=== PATIENT | female | born 1990 | race Caucasian/White ===

== ENCOUNTER 2018-05-31 11:12 | Emergency (ER) | payer OTHER ==
[2018-05-31 11:33] VITALS: TEMP 98.1; BMI 33.0
--- NOTE | 2018-05-31 12:28 | PDOC ---
*Physical Exam - Vital Signs Last Vital Signs Temp Pulse Resp BP Pulse Ox 98.1 F 78 114/51 L 100 05/31/18 11:29 05/31/18 11:29 05/31/18 11:29 05/31/18 11:29 - Physical Exam Comments: 05/31/18 12:28 The patient was examined by JACOB Paz under my direct supervision. I personally evaluated the patient. I concur with the above findings and the plan of care. ED Treatment Course - LABORATORY CBC & Chemistry Diagram: 05/31/18 11:30 05/31/18 11:30 *DC/Admit/Observation/Transfer Diagnosis at time of Disposition: Hyperemesis - Discharge Dispostion Disposition: HOME Condition at time of disposition: Improved - Prescriptions Prescriptions: Metoclopramide HCl [Reglan] 10 mg PO Q8H #15 tablet - Referrals Referrals: Ronak Marques MD [Primary Care Provider] - - Patient Instructions Printed Discharge Instructions: Hyperemesis Gravidarum Additional Instructions: Take Reglan as needed for nausea and maintain adequate hydration. Please continue to follow-up with your OB - Post Discharge Activity
[2018-05-31] MEDS ORDERED: METOCLOPRAMIDE HCL INJECTION 10 MG/2 ML VIAL IVPUSH ONE (12:30)
[2018-05-31] MEDS ORDERED: SODIUM CHLORIDE 1,000 ML IV STA (12:30)
--- NOTE | 2018-05-31 12:30 | PDOC ---
History of Present Illness - General Chief Complaint: Nausea/Vomiting Stated Complaint: VOMITING Time Seen by Provider: 05/31/18 12:26 History Source: Patient - History of Present Illness Timing/Duration: reports: constant, getting worse Quality: reports: severe Abdominal Pain Onset Location: reports: epigastric Past History - Past Medical History Allergies/Adverse Reactions: Allergies Allergy/AdvReac Type Severity Reaction Status Date / Time No Known Allergies Allergy Verified 05/31/18 11:28 Home Medications: Ambulatory Orders Metoclopramide HCl [Reglan] 10 mg PO Q8H #15 tablet 05/31/18 Prenat 115/Iron Fum/Folic/Dss [ 19 Tablet] 1 each PO DAILY 05/31/18 Anemia: Yes COPD: No - Suicide/Smoking/Psychosocial Hx Smoking History: Former smoker Have you smoked in the past 12 months: No If you are a former smoker, when did you quit?: years ago Information on smoking cessation initiated: No Review of Systems - Review of Systems Constitutional: Yes: Weakness. No: Chills, Fever ABD/GI: Yes: Nausea, Vomiting. No: Diarrhea : No: Dysuria, Flank Pain *Physical Exam - Vital Signs Last Vital Signs Temp Pulse Resp BP Pulse Ox 98.1 F 78 114/51 L 100 05/31/18 11:29 05/31/18 11:29 05/31/18 11:29 05/31/18 11:29 - Physical Exam General Appearance: Yes: Appropriately Dressed, Moderate Distress HEENT: positive: Normal Voice Neck: positive: Supple Respiratory/Chest: negative: Respiratory Distress Gastrointestinal/Abdominal: positive: Normal Bowel Sounds, Tender (epigastrium, no ttp over RUQ), Soft. negative: Distended, Guarding, Rebound Musculoskeletal: negative: CVA Tenderness Integumentary: positive: Dry, Warm Neurologic: positive: Fully Oriented, Alert, Normal Mood/Affect Moderate Sedation - Procedure Monitoring Vital Signs: Procedure Monitoring Vital Signs Temperature 98.1 F 05/31/18 11:29 Pulse Rate 78 05/31/18 11:29 Respiratory Rate Blood Pressure 114/51 L 05/31/18 11:29 O2 Sat by Pulse Oximetry (%) 100 05/31/18 11:29 ED Treatment Course - LABORATORY CBC & Chemistry Diagram: 05/31/18 11:30 05/31/18 11:30 Medical Decision Making - Medical Decision Making 05/31/18 12:29 28 yo F, , ~ 6 weeks by dates, due for initial US next week, here w/ nausea, vomiting x 1 week, unable to keep anything down. Seen by her PHARMACY SALESPERSON and currently on B6 with no relief. Now complaining of epigastric discomfort. No lower abdominal pain, vaginal bleed, dysuria, fever or chills See exam Hyperemesis gravidarum -zofran -IVF -labs -OB US 05/31/18 15:55 Labs unremarkable. mildly elevated LFTs. Pt pain since improved with no ttp over RUQ. OB US read as + IUP @ 6 weeks with cardiac activity. Patient has since significantly improved with meds and able to tolerate po. Stable for discharge w/ rx for reglan and continued PHARMACY SALESPERSON f/u *DC/Admit/Observation/Transfer Diagnosis at time of Disposition: Hyperemesis - Discharge Dispostion Disposition: HOME Condition at time of disposition: Improved - Prescriptions Prescriptions: Metoclopramide HCl [Reglan] 10 mg PO Q8H #15 tablet - Referrals Referrals: Ronak Marques MD [Primary Care Provider] - - Patient Instructions Printed Discharge Instructions: Hyperemesis Gravidarum Additional Instructions: Take Reglan as needed for nausea and maintain adequate hydration. Please continue to follow-up with your OB - Post Discharge Activity
[2018-05-31] MEDS ORDERED: RANITIDINE HCL 150 MG TABLET (FP) PO ONE (12:31)
[2018-05-31] MEDS ORDERED: METOCLOPRAMIDE HCL INJECTION 10 MG/2 ML VIAL ONE (12:36)
[2018-05-31] MEDS ORDERED: RANITIDINE HCL 150 MG TABLET (FP) ONE (12:42)
[2018-05-31 12:48] LABS: BASO % 0.6 % (0-2.0); EOS % 0.4 % (0-4.5); HEMATOCRIT 38.5 % (32.4-45.2); HEMOGLOBIN 13.1 GM/dL (10.7-15.3); LYMPH % 16.8 % (8-40); MCHC 34.1 g/dl (32.0-36.0); MEAN CELL VOLUME 85.1 fl (80-96); MEAN PLT VOLUME 9.1 fl (7.5-11.1); MONO % 6.3 % (3.8-10.2); NEUT % 75.9 % (42.8-82.8); PLATELET COUNT 274 K/MM3 (134-434); RBC 4.52 M/mm3 (3.60-5.2); RDW 13.2 % (11.6-15.6); WHITE BLOOD COUNT 10.2 K/mm3 (4.0-10.0)
[2018-05-31 13:28] LABS: ALBUMIN 3.7 g/dl (3.4-5.0); ALK PHOS 80 U/L (45-117); ANION GAP 10 MMOL/L (8-16); BILIRUBIN,TOTAL 1.6 mg/dL (0.2-1); BLOOD UREA NITROGEN 10 mg/dL (7-18); CALCIUM 9.1 mg/dL (8.5-10.1); CHLORIDE 101 mmol/L (98-107); CO2 25 mmol/L (21-32); CREATININE 0.6 mg/dL (0.55-1.3); GLUCOSE,RANDOM 84 mg/dL (74-106); LIPASE 137 U/L (73-393); POTASSIUM 3.9 mmol/L (3.5-5.1); SGOT/AST 62 U/L (15-37); SGPT/ALT 113 U/L (13-61); SODIUM 136 mmol/L (136-145)
[2018-05-31 16:04] LABS: URINE APPEARANCE CLOUDY; URINE BILIRUBIN NEGATIVE (<2.0 mg/dL); URINE COLOR AMBER; URINE GLUCOSE (UA) NEGATIVE (NEGATIVE); URINE KETONE 2+ (NEGATIVE); URINE LEUK ESTERASE 1+ (NEGATIVE); URINE NITRITE NEGATIVE (NEGATIVE); URINE PROTEIN 1+ (NEGATIVE)
[2018-05-31 16:08] LABS: EPI CELLS MODERATE /HPF (FEW); URINE BACTERIA RARE /hpf (NONE SEEN); URINE MUCUS MANY; YEAST RARE
[2018-05-31] MEDS ORDERED: ACETAMINOPHEN 325 MG TABLET (FP) PO ONE (16:14)
[2018-05-31] MEDS ORDERED: ACETAMINOPHEN 325 MG TABLET (FP) ONE (16:16)
[2018-05-31 16:29] VITALS: BP 105/71; PULSE 69
== END 2018-05-31 16:37 | disposition home or self-care (01) ==
LOC: JER 11:12
PROC: 3E033GC Introduction of Other Therapeutic Substance into Peripheral Vein, Percutaneous Approach (ICD-10-PCS; principal; 2018-05-31)
PROC: 3E0337Z Introduction of Electrolytic and Water Balance Substance into Peripheral Vein, Percutaneous Approach (ICD-10-PCS; 2018-05-31)
DX: O26.891 Other specified pregnancy related conditions, first trimester (principal); Z3A.01 Less than 8 weeks gestation of pregnancy; O21.0 Mild hyperemesis gravidarum
CPT/HCPCS: 36415; 76817-TC; 80053; 81003; 81015; 83690; 85025; 87086; 96361; 96374; 99283-25; J7030

== ENCOUNTER 2018-06-02 17:04 | Emergency (ER) | payer OTHER ==
[2018-06-02] MEDS ORDERED: SODIUM CHLORIDE 1,000 ML IV STA ×2 (17:12→21:25)
[2018-06-02] MEDS ORDERED: FAMOTIDINE 20 MG/50 ML IVPB 20 MG in PREMIX 50 IVPB ONE (17:12)
[2018-06-02] MEDS ORDERED: ONDANSETRON 4 MG/2 ML VIAL IVPUSH ONE (17:12)
--- NOTE | 2018-06-02 17:12 | PDOC ---
Rapid Medical Evaluation Medical Evaluation: Allergies Allergy/AdvReac Type Severity Reaction Status Date / Time No Known Allergies Allergy Verified 05/31/18 11:28 06/02/18 17:11 I performed a brief in-person evaluation. Chief complaint: Approx 6 wks , vomiting, unable to keep down fluids Pertinent physical exam findings: Dry mucous membranes, in some distress secondary to epigastric pain and nausea. I have ordered the following: UA/culture, basic labs, fluids, Zofran, Pepcid Patient will proceed to the ED for further evaluation. Discharge Disposition - Diagnosis Hyperemesis - Referrals - Patient Instructions - Post Discharge Activity
[2018-06-02 17:18] VITALS: TEMP 98.5; BMI 33.0
[2018-06-02 17:31] LABS: BASO % 0.4 % (0-2.0); EOS % 0.3 % (0-4.5); HEMATOCRIT 38.3 % (32.4-45.2); LYMPH % 17.5 % (8-40); MCH 28.7 pg (25.7-33.7); MEAN CELL VOLUME 84.4 fl (80-96); MEAN PLT VOLUME 9.4 fl (7.5-11.1); MONO % 6.8 % (3.8-10.2); PLATELET COUNT 282 K/MM3 (134-434); RBC 4.54 M/mm3 (3.60-5.2); RDW 13.3 % (11.6-15.6)
[2018-06-02] MEDS ORDERED: ONDANSETRON 4 MG/2 ML VIAL ONE (17:40)
[2018-06-02] MEDS ORDERED: FAMOTIDINE 20 MG/50 ML IVPB 20 MG/50 ML MG IVPB ONE (17:40)
--- NOTE | 2018-06-02 17:55 | PDOC ---
History of Present Illness - General Chief Complaint: Nausea/Vomiting Stated Complaint: STOMACH PAIN Time Seen by Provider: 06/02/18 17:42 History Source: Patient Exam Limitations: No Limitations - History of Present Illness Travel History: No Initial Comments: 06/02/18 17:49 HPI: This 28-year-old female presents to the emergency room for evaluation of hyperemesis. She was seen here 2 days ago for the same similar complaint. She is approximately 6 weeks . This is a 6 para 4 with one current and a last menstrual period of 1228. She did see her [employer] STOCK CLERK who informed her to respond to the emergency room for hydration. She states that she's been vomiting every time she eats something it comes right back up. She has not been able to keep anything down. She also feels extremely dizzy. She does have some numbness and tingling to her hands as she is getting anxious about this nausea and vomiting and cannot keep anything down. Chief Compliant: Hyperemesis during PMH: Hyperemesis with other prior pregnancies FH: Pt has not recently traveled outside the country in the last 30 days. Pt has not been in contact with people who have traveled out of the country, in contact with people who have been ill with fever, n, v, d. SH: smoking use: NONE illicit drug use: NONE alcohol use: NONE employment/educational status: sexual history: PSH: Home med use noted on JUN Allergies: NKA Immunizations: PCP: Past History - Past Medical History Allergies/Adverse Reactions: Allergies Allergy/AdvReac Type Severity Reaction Status Date / Time No Known Allergies Allergy Verified 06/02/18 17:17 Home Medications: Ambulatory Orders Metoclopramide HCl [Reglan] 10 mg PO Q8H #15 tablet 05/31/18 Prenat 115/Iron Fum/Folic/Dss [ 19 Tablet] 1 each PO DAILY 05/31/18 Anemia: Yes COPD: No - Suicide/Smoking/Psychosocial Hx Smoking History: Never smoked Have you smoked in the past 12 months: No If you are a former smoker, when did you quit?: years ago Review of Systems - Review of Systems Able to Perform ROS?: Yes Comments:: 06/02/18 18:14 General statement: Age she's been having nausea and vomiting Hematology: neg history of bleeding/blood thinners Skin: Neg for lesions, rash, bruising. HEENT: Neg symptoms Respiratory: Neg SOB or difficulty in breathing Cardiac: Neg chest pain GI: Positive abdominal pain as well as nausea, vomiting exclusively with : Neg problems on voiding MS: Neg for joint pain/stiffness, no edema Neuro: Neg for LOC, weakness, Endocrine: Neg for excess thirst/hunger, cold/heat intolerance, excess sweating Allergies: Neg for allergies *Physical Exam - Vital Signs Last Vital Signs Temp Pulse Resp BP Pulse Ox 98.5 F 96 H 22 H 112/70 100 06/02/18 17:17 06/02/18 17:17 06/02/18 17:17 06/02/18 17:17 06/02/18 17:17 - Physical Exam Comments: 06/02/18 18:15 General Appearance: This ill [id number] female V/S: hemodynamically stable, afebrile Skin: WNL of pt's skin color, no signs of pallor, mottling, cyanosis Head:symmetrical Eyes: EOM's intact, PERRLA Ears: denies pain Nose: patent Throat: lips, teeth, gums, tongue, buccal mucos pink and moist Lungs: Chest symmetry equal. Cap refill <3 seconds. Lung sounds clear Cardiac: PMI at R 4MCL space, pos S1 and S2, regular rate. Abdomen: Soft, round, tender diffuse all over : Not observed Muscularskeletal: Gait steady, ambulated in to ER, no edema +PMS Neuro: AAOx3, cognitively intact, speech clear and appropriate. Moderate Sedation - Procedure Monitoring Vital Signs: Procedure Monitoring Vital Signs Temperature 98.5 F 06/02/18 17:17 Pulse Rate 96 H 06/02/18 17:17 Respiratory Rate 22 H 06/02/18 17:17 Blood Pressure 112/70 06/02/18 17:17 O2 Sat by Pulse Oximetry (%) 100 06/02/18 17:17 ED Treatment Course - LABORATORY CBC & Chemistry Diagram: 06/02/18 17:24 06/02/18 17:24 - ADDITIONAL ORDERS Additional order review: 06/02/18 17:24 RBC 4.54 MCV 84.4 MCHC 34.0 RDW 13.3 MPV 9.4 Neutrophils % 75.0 Lymphocytes % 17.5 Monocytes % 6.8 Eosinophils % 0.3 Basophils % 0.4 Medical Decision Making - Medical Decision Making 06/02/18 18:15 Patient initially was seen and examined. Patient states that she has been having some nausea and vomiting on and off over the last several weeks. She is . Approximately 6 weeks . States she has received the influenza vaccine several days ago at her GYNs office. If she has been having hyperemesis and had to have IV fluids 2 days ago here in the emergency room. Again she is started on IV fluids, Zofran IV, and Pepcid. She has not been able to tolerate anything by mouth. I am signing this patient out to my colleague: Susana HAYES In brief, this patient is being seen in the ED for a chief complaint of: hyperemesis I have completed the initial assessment interview note and have ordered:labs, ua , IVF, zofran, pepcid Pending results are: Plan for disposition is as follows: The patient is able to tolerate some fluids by mouth and is less dizzy or having any kind of hyperemesis continuing she may need to come in for observation this will depend on her presentation after treatment. *DC/Admit/Observation/Transfer Diagnosis at time of Disposition: Hyperemesis - Discharge Dispostion Disposition: HOME Decision to Admit order: No - Referrals Referrals: Ronak Marques MD [Primary Care Provider] - - Patient Instructions Printed Discharge Instructions: DI for Vomiting -- Adult Additional Instructions: Discharge instructions 1. Please follow up with your primary physician within the next few days and explain that you have been seen here in the Emergency Room. 2. If you experience any worsening of symptoms, please return to the ER 3. Rest, take small sips frequently. In sure that you are voiding during the course of the day to prevent any dehydration. You may try ice pops, teas, and water versus Gatorade 4. Drink plenty of water - Post Discharge Activity
[2018-06-02] MEDS ORDERED: SIMETHICONE 80 MG TAB.CHEW (FP) PO ONE (18:02)
--- NOTE | 2018-06-02 18:53 | PDOC ---
*Physical Exam - Vital Signs Last Vital Signs Temp Pulse Resp BP Pulse Ox 98.5 F 96 H 22 H 112/70 100 06/02/18 17:17 06/02/18 17:17 06/02/18 17:17 06/02/18 17:17 06/02/18 17:17 ED Treatment Course - LABORATORY CBC & Chemistry Diagram: 06/02/18 17:24 06/02/18 18:31 - ADDITIONAL ORDERS Additional order review: Laboratory Results 06/02/18 17:24 Sodium Cancelled Potassium Cancelled Chloride Cancelled Carbon Dioxide Cancelled Anion Gap Cancelled BUN Cancelled Creatinine Cancelled Creat Clearance w eGFR Cancelled Random Glucose Cancelled Calcium Cancelled Magnesium Cancelled Total Bilirubin Cancelled AST Cancelled ALT Cancelled Alkaline Phosphatase Cancelled Total Protein Cancelled Albumin Cancelled 06/02/18 17:24 RBC 4.54 MCV 84.4 MCHC 34.0 RDW 13.3 MPV 9.4 Neutrophils % 75.0 Lymphocytes % 17.5 Monocytes % 6.8 Eosinophils % 0.3 Basophils % 0.4 Medical Decision Making - Medical Decision Making 06/02/18 18:52 signout received from FREDDY Becker. pending labs BMP and u/a pt received 2L IVF, zofran and pepcid. if nausea or emesis will add reglan, additional IVF and IV tylenol. 06/02/18 19:45 LFT's mildly elevated, similar to previous ED visit but now with worsening ALT and rise in leucocytosis. will eval with liver sono to eval liver and gallbladder pt tolerating crackers at bedside. says she was treated for "bacteria" in her stomach with abx few months ago but infection was not fully treated on repeat examination, she was supposed to repeat the antibiotic regimen but she got and could not take all the antibiotics. 06/02/18 21:51 there was no sonographic evidence of hepatic or biliary tract pathology. 06/02/18 22:11 discussed results of labs and imaging with and pt. she feels better since she first came in but still has nausea. She requests to go home. recommended that she continue to try to eat and drink in small portions even if she continuos to vomit. and pt are in agreement to return home with recommendation to return to hospital if symptoms worsen or any new symptoms develop. *DC/Admit/Observation/Transfer Diagnosis at time of Disposition: Hyperemesis - Discharge Dispostion Disposition: HOME Condition at time of disposition: Stable Decision to Admit order: No - Referrals Referrals: Ronak Marques MD [Primary Care Provider] - - Patient Instructions Printed Discharge Instructions: DI for Vomiting -- Adult Additional Instructions: Discharge instructions 1. Please follow up with your primary physician within the next few days and explain that you have been seen here in the Emergency Room. 2. If you experience any worsening of symptoms, please return to the ER 3. Rest, take small sips frequently. In sure that you are voiding during the course of the day to prevent any dehydration. You may try ice pops, teas, and water versus Gatorade 4. Drink plenty of water - Post Discharge Activity
[2018-06-02 19:25] LABS: ALBUMIN 3.4 g/dl (3.4-5.0); ALK PHOS 90 U/L (45-117); ANION GAP 8 MMOL/L (8-16); BILIRUBIN,TOTAL 1.1 mg/dL (0.2-1); BLOOD UREA NITROGEN 8 mg/dL (7-18); CALCIUM 8.8 mg/dL (8.5-10.1); CHLORIDE 106 mmol/L (98-107); CO2 24 mmol/L (21-32); CREATININE 0.5 mg/dL (0.55-1.3); GLUCOSE,RANDOM 96 mg/dL (74-106); POTASSIUM 3.7 mmol/L (3.5-5.1); SGOT/AST 57 U/L (15-37); SGPT/ALT 173 U/L (13-61); SODIUM 137 mmol/L (136-145); TOT PROT 7.3 g/dl (6.4-8.2)
[2018-06-02 19:29] LABS: URINE APPEARANCE TURBID; URINE BILIRUBIN NEGATIVE (<2.0 mg/dL); URINE COLOR AMBER; URINE GLUCOSE (UA) NEGATIVE (NEGATIVE); URINE KETONE 2+ (NEGATIVE); URINE LEUK ESTERASE NEGATIVE (NEGATIVE); URINE NITRITE NEGATIVE (NEGATIVE); URINE PROTEIN 1+ (NEGATIVE)
[2018-06-02 19:37] LABS: EPI CELLS RARE /HPF (FEW); URINE HYALINE CAST 6 /lpf; URINE MUCUS MANY; YEAST MANY
[2018-06-02] MEDS ORDERED: DEXTROSE 5%-NORMAL SALINE 1,000 ML IV ONE (19:45)
[2018-06-02] MEDS ORDERED: METOCLOPRAMIDE HCL INJECTION 10 MG/2 ML VIAL IVPUSH ONE (20:46)
[2018-06-02] MEDS ORDERED: METOCLOPRAMIDE HCL INJECTION 10 MG/2 ML VIAL ONE (21:15)
[2018-06-02] MEDS ORDERED: ACETAMINOPHEN 1000 MG/100 ML VIAL (NON FORMULARY) IVPB ONE (21:26)
[2018-06-02] MEDS ORDERED: ACETAMINOPHEN INJECTION 100 ML IVPB ONE (21:57)
[2018-06-02 23:07] VITALS: BP 108/65; PULSE 89
== END 2018-06-02 23:07 | disposition home or self-care (01) ==
LOC: JER 17:04
PROC: 3E0337Z Introduction of Electrolytic and Water Balance Substance into Peripheral Vein, Percutaneous Approach (ICD-10-PCS; principal; 2018-06-02)
PROC: 3E033GC Introduction of Other Therapeutic Substance into Peripheral Vein, Percutaneous Approach (ICD-10-PCS; 2018-06-02)
PROC: 3E033GC Introduction of Other Therapeutic Substance into Peripheral Vein, Percutaneous Approach (ICD-10-PCS; 2018-06-02)
PROC: 3E033GC Introduction of Other Therapeutic Substance into Peripheral Vein, Percutaneous Approach (ICD-10-PCS; 2018-06-02)
PROC: 3E033NZ Introduction of Analgesics, Hypnotics, Sedatives into Peripheral Vein, Percutaneous Approach (ICD-10-PCS; 2018-06-02)
DX: O26.891 Other specified pregnancy related conditions, first trimester (principal); O21.0 Mild hyperemesis gravidarum; Z3A.01 Less than 8 weeks gestation of pregnancy
CPT/HCPCS: 36415; 76705-TC; 80053; 81003; 81015; 85025; 87086; 96361; 96365; 96375; 99283-25; J0131; J7030

== ENCOUNTER 2018-06-09 17:44 | Emergency (ER) | payer OTHER ==
[2018-06-09 17:51] VITALS: BP 116/80; PULSE 88; TEMP 97.4; BMI 32.0
--- NOTE | 2018-06-09 17:53 | PDOC ---
Rapid Medical Evaluation Time Seen by Provider: 06/09/18 17:47 Medical Evaluation: Allergies Allergy/AdvReac Type Severity Reaction Status Date / Time No Known Allergies Allergy Verified 06/02/18 17:17 06/09/18 17:48 I have performed a brief in-person evaluation of this patient. The patient presents with a chief complaint of: Hyperemesis w/ multiple visits for same over 1-2 weeks. Taking reglan and B6 w/ diet modification w/ no relief. Saw [facility]TEGR[facility] SPECIALIST yesterday but not given any new meds. Pt ~8 week , w/ + IUP w/ cardiac activity demonstrated on multiple US per pt, last time yesterday. No lower abd pain, vag bleed or dysuria Pertinent physical exam findings:harrison uncomfortable but stable I have ordered the following:labs The patient will proceed to the ED for further evaluation Discharge Disposition - Diagnosis Hyperemesis gravidarum - Referrals - Patient Instructions - Post Discharge Activity
[2018-06-09 18:24] LABS: BASO % 0.6 % (0-2.0); EOS % 0.6 % (0-4.5); HEMATOCRIT 36.2 % (32.4-45.2); HEMOGLOBIN 12.6 GM/dL (10.7-15.3); LYMPH % 16.1 % (8-40); MCH 29.5 pg (25.7-33.7); MCHC 34.7 g/dl (32.0-36.0); MEAN CELL VOLUME 84.9 fl (80-96); MEAN PLT VOLUME 9.4 fl (7.5-11.1); MONO % 8.7 % (3.8-10.2); PLATELET COUNT 266 K/MM3 (134-434); RBC 4.27 M/mm3 (3.60-5.2); RDW 13.1 % (11.6-15.6); WHITE BLOOD COUNT 10.9 K/mm3 (4.0-10.0)
[2018-06-09 19:02] LABS: ALBUMIN 3.6 g/dl (3.4-5.0); ALK PHOS 113 U/L (45-117); ANION GAP 7 MMOL/L (8-16); BILIRUBIN,TOTAL 1.1 mg/dL (0.2-1); BLOOD UREA NITROGEN 12 mg/dL (7-18); CALCIUM 9.1 mg/dL (8.5-10.1); CHLORIDE 100 mmol/L (98-107); CO2 26 mmol/L (21-32); CREATININE 0.6 mg/dL (0.55-1.3); GLUCOSE,RANDOM 88 mg/dL (74-106); SGOT/AST 110 U/L (15-37); SGPT/ALT 270 U/L (13-61); SODIUM 133 mmol/L (136-145); TOT PROT 7.8 g/dl (6.4-8.2)
[2018-06-09] MEDS ORDERED: SODIUM CHLORIDE 1,000 ML IV SCH (19:45)
--- NOTE | 2018-06-09 21:11 | PDOC ---
History of Present Illness - General Chief Complaint: Nausea/Vomiting Stated Complaint: VOMITING Time Seen by Provider: 06/09/18 17:47 - History of Present Illness Initial Comments: 06/09/18 21:05 28 year old woman with a history of anemia A2 LNMP 04/04 who presents with 5 weeks of nausea and nbnb vomiting up to 5-10x episodes per day. The patient also complains of dizziness and some epigastric abdominal pain that improved with eating. The patient denies fevers but has had some chills. The patient had the same type of nausea and vomiting when she had her first child approx 13 years ago. For her current symptoms she has tried Reglan, Pepcid and tums and B6 without relief. The patient denies chest pain, diarrhea, constipation, headaches. She has no other complaints at bedside. Past History - Past Medical History Allergies/Adverse Reactions: Allergies Allergy/AdvReac Type Severity Reaction Status Date / Time No Known Allergies Allergy Verified 06/09/18 22:36 Home Medications: Ambulatory Orders Metoclopramide HCl [Reglan] 10 mg PO Q8H #15 tablet 05/31/18 Prenat 115/Iron Fum/Folic/Dss [ 19 Tablet] 1 each PO DAILY 05/31/18 Anemia: Yes COPD: No - Immunization History Immunization Up to Date: Yes - Suicide/Smoking/Psychosocial Hx Smoking History: Unknown if ever smoked Have you smoked in the past 12 months: No If you are a former smoker, when did you quit?: years ago Hx Alcohol Use: No Drug/Substance Use Hx: No *Physical Exam - Vital Signs Last Vital Signs Temp Pulse Resp BP Pulse Ox 97.4 F L 88 20 116/80 99 06/09/18 17:49 06/09/18 17:49 06/09/18 17:49 06/09/18 17:49 06/09/18 17:49 - Physical Exam Comments: 06/09/18 21:48 unremarkable Moderate Sedation - Procedure Monitoring Vital Signs: Procedure Monitoring Vital Signs Temperature 97.4 F L 06/09/18 17:49 Pulse Rate 88 06/09/18 17:49 Respiratory Rate 20 06/09/18 17:49 Blood Pressure 116/80 06/09/18 17:49 O2 Sat by Pulse Oximetry (%) 99 06/09/18 17:49 ED Treatment Course - LABORATORY CBC & Chemistry Diagram: 06/09/18 18:05 06/09/18 18:05 - ADDITIONAL ORDERS Additional order review: Laboratory Results 06/09/18 06/09/18 06/09/18 19:29 18:05 18:05 WBC 10.9 H RBC 4.27 Hgb 12.6 Hct 36.2 MCV 84.9 MCH 29.5 MCHC 34.7 RDW 13.1 Plt Count 266 MPV 9.4 Absolute Neuts (auto) 8.1 H Neutrophils % 74.0 Lymphocytes % 16.1 Monocytes % 8.7 Eosinophils % 0.6 D Basophils % 0.6 Nucleated RBC % 0 Sodium Cancelled 133 L Potassium Cancelled 4.0 Chloride Cancelled 100 Carbon Dioxide Cancelled 26 Anion Gap Cancelled 7 L BUN Cancelled 12 Creatinine Cancelled 0.6 Creat Clearance w eGFR Cancelled > 60 Random Glucose Cancelled 88 Calcium Cancelled 9.1 Total Bilirubin Cancelled 1.1 H AST Cancelled 110 H ALT Cancelled 270 H Alkaline Phosphatase Cancelled 113 Total Protein Cancelled 7.8 Albumin Cancelled 3.6 Beta HCG, Quant [id number] 06/09/18 18:05 RBC 4.27 MCV 84.9 MCHC 34.7 RDW 13.1 MPV 9.4 Neutrophils % 74.0 Lymphocytes % 16.1 Monocytes % 8.7 Eosinophils % 0.6 D Basophils % 0.6 - RADIOLOGY Radiology Studies Ordered: Category Date Time Status <14WKS US [US] Stat Ultrasound 06/09/18 19:29 Completed Medical Decision Making - Medical Decision Making 06/09/18 21:47 28 year old woman with a history of anemia A2 LNMP 04/04 who presents with 5 weeks of nausea and nbnb vomiting up to 5-10x episodes per day. The patient also complains of dizziness and some epigastric abdominal pain that improved with eating. The patient denies fevers but has had some chills. The patient had the same type of nausea and vomiting when she had her first child approx 13 years ago. For her current symptoms she has tried Reglan, Pepcid and tums and B6 without relief. ED Course: consider molar vs iup vs ectopic cbc, cmp, ekg, ua, tvus LFT elevated Will order abd US to evaluate for cholestasis *DC/Admit/Observation/Transfer Diagnosis at time of Disposition: Abnormal LFTs, Dizziness, Hyperemesis - Discharge Dispostion Disposition: HOME Condition at time of disposition: Stable Decision to Admit order: No - Referrals Referrals: Ronak Marques MD [Primary Care Provider] - - Patient Instructions Printed Discharge Instructions: DI for Vomiting -- Adult Additional Instructions: You were seen in the ED for complaints of vomiting in . In the ED you were evaluated with labwork and imaging. Your results showed an intrauterine of 7 weeks and 4 days w/ heart rate of 156bpm. There does not appear to be an acute need for immediate hospitalization. You are advised to follow up with your Primary Care Physician within 1 week. Please let them know about your rising LFT lab levels. You were given a prescription for Diclegis, anti-nausea medication. Please take as directed. Return to the ED immediately if you experience worsening vomiting, diarrhea, fever, vaginal bleeding or discharge, abdominal pain, chest pain or shortness of breath. - Post Discharge Activity
[2018-06-09] MEDS ORDERED: METOCLOPRAMIDE HCL INJECTION 10 MG/2 ML VIAL IVPUSH ONE (21:12)
[2018-06-09] MEDS ORDERED: FAMOTIDINE 20 MG/50 ML IVPB 20 MG/50 ML MG IVPB ONE ×2 (21:12→21:18)
[2018-06-09] MEDS ORDERED: METOCLOPRAMIDE HCL INJECTION 10 MG/2 ML VIAL ONE (21:18)
[2018-06-09] MEDS ORDERED: MAG HYDROX/AL HYDROX/SIMETH -MYLANTA- ORAL SUSPENSION PO ONE (21:30)
[2018-06-09] MEDS ORDERED: MAG HYDROX/AL HYDROX/SIMETH 30 ML UNIT-DOSE CUP ONE (21:37)
--- NOTE | 2018-06-09 21:49 | PDOC ---
Attending Attestation - Resident Resident Name: Ann Junior - ED Attending Attestation I have performed the following: I have examined & evaluated the patient, The case was reviewed & discussed with the resident, I agree w/resident's findings & plan - HPI HPI: 06/09/18 21:48 Ms. Garrett is a 8 weeks 28 year old female , with a past medical history significant for anemia, presents to the emergency department with 5 weeks of nausea and vomiting (non bloody, non bilious). The patient also endorses one week of worsening epigastric abdominal pain, alleviated with eating and worsened without eating. The patient states her LMP was 04/14/18. Also noted today had up to 12X NBNB emesis, associated with dizziness and passing out. No AP, VB, cp, sob, urinary sx, redding, neuro changes, urinary sx. Has been taking tums and pepcid ac without relief. 06/09/18 21:48 - Physicial Exam PE: 06/09/18 21:48 NAD, well appearing, oriented appropriately, alert, PERRL, EOMI, MMM, nl conjunctiva, anicteric; neck supple. lungs clear, RRR, abdomen soft nontender. LEWIS x4, no focal neuro deficits. No peripheral edema. normal color for ethnicity , WWP. - Medical Decision Making 06/09/18 21:46 See HPI for details Vital signs reviewed, wnl. Prior notes reviewed, including admissions, discharges and consultations. laboratory results and imaging reviewed, basic labs and lytes wnl, notable for uptrending transaminitis, higher than last check from last week.. abdomen US_ OB US with 7 wks gestation, live IUP no AP or VB. given pepcid, GI cocktail, IVF, reglan and reassessed. 06/09/18 21:49
[2018-06-09 23:32] LABS: URINE APPEARANCE SLCLOUDY; URINE BILIRUBIN NEGATIVE (<2.0 mg/dL); URINE COLOR YELLOW; URINE GLUCOSE (UA) NEGATIVE (NEGATIVE); URINE KETONE 1+ (NEGATIVE); URINE LEUK ESTERASE TRACE (NEGATIVE); URINE NITRITE NEGATIVE (NEGATIVE); URINE PROTEIN NEGATIVE (NEGATIVE); URINE UROBILINOGEN NEGATIVE mg/dL (0.2-1.0)
[2018-06-09 23:36] LABS: EPI CELLS MANY /HPF (FEW); URINE BACTERIA RARE /hpf (NONE SEEN); URINE HYALINE CAST 1 /lpf; URINE MUCUS MODERATE
--- NOTE | 2018-06-10 00:47 | PDOC ---
*Physical Exam - Vital Signs Last Vital Signs Temp Pulse Resp BP Pulse Ox 97.4 F L 88 20 116/80 99 06/09/18 17:49 06/09/18 17:49 06/09/18 17:49 06/09/18 17:49 06/09/18 17:49 ED Treatment Course - LABORATORY CBC & Chemistry Diagram: 06/09/18 18:05 06/09/18 18:05 - ADDITIONAL ORDERS Additional order review: Laboratory Results 06/09/18 06/09/18 06/09/18 23:19 19:29 18:05 Sodium Cancelled 133 L Potassium Cancelled 4.0 Chloride Cancelled 100 Carbon Dioxide Cancelled 26 Anion Gap Cancelled 7 L BUN Cancelled 12 Creatinine Cancelled 0.6 Creat Clearance w eGFR Cancelled > 60 Random Glucose Cancelled 88 Calcium Cancelled 9.1 Total Bilirubin Cancelled 1.1 H AST Cancelled 110 H ALT Cancelled 270 H Alkaline Phosphatase Cancelled 113 Total Protein Cancelled 7.8 Albumin Cancelled 3.6 Beta HCG, Quant 638717.2 Urine Color Yellow Urine Appearance Slcloudy Urine pH 5.0 D Ur Specific [place] 1.023 Urine Protein Negative Urine Glucose (UA) Negative Urine Ketones 1+ H Urine Blood 2+ H Urine Nitrite Negative Urine Bilirubin Negative Urine Urobilinogen Negative Ur Leukocyte Esterase Trace Urine WBC (Auto) 3 Urine RBC (Auto) 29 Ur Epithelial Cells Many Urine Bacteria Rare Hyaline Casts 1 Urine Mucus Moderate 06/09/18 18:05 RBC 4.27 MCV 84.9 MCHC 34.7 RDW 13.1 MPV 9.4 Neutrophils % 74.0 Lymphocytes % 16.1 Monocytes % 8.7 Eosinophils % 0.6 D Basophils % 0.6 - Medications Given in the ED: ED Medications Discontinued Medications Generic Name Dose Route Start Last Admin Trade Name Freq PRN Reason Stop Dose Admin Al Hydroxide/Mg Hydroxide 30 ml 06/09/18 21:30 06/09/18 21:40 Mylanta Suspension - PO 06/09/18 21:31 30 mg ONCE ONE Administration Famotidine/Sodium Chloride 20 mg in 50 mls @ 100 mls/hr 06/09/18 21:12 21:24 Pepcid 20 Mg Premixed Ivpb - IVPB 06/09/18 21:41 100 mls/hr ONCE ONE Administration Metoclopramide HCl 10 mg 06/09/18 21:12 06/09/18 21:24 Reglan Injection - IVPUSH 06/09/18 21:13 10 mg ONCE ONE Administration Medical Decision Making - Medical Decision Making 06/10/18 00:45 US did not show choleliths but did show sludge. Liver unremarkable. Will DC patient with return precautions and follow up instructions. *DC/Admit/Observation/Transfer Diagnosis at time of Disposition: Abnormal LFTs, Dizziness, Hyperemesis - Discharge Dispostion Disposition: HOME Condition at time of disposition: Stable - Prescriptions Prescriptions: Doxylamine Succinate/Vit B6 [Diclegis Dr 10-10 mg Tablet] 1 each PO TID PRN 30 Days #21 tablet.dr PRN Reason: Nausea And/Or Vomiting Metoclopramide HCl [Reglan] 5 mg PO TID PRN 7 Days #21 tablet PRN Reason: Nausea And/Or Vomiting - Referrals Referrals: Ronak Marques MD [Primary Care Provider] - - Patient Instructions Printed Discharge Instructions: DI for Vomiting -- Adult Additional Instructions: You were seen in the ED for complaints of vomiting in . In the ED you were evaluated with labwork and imaging. Your results showed an intrauterine of 7 weeks and 4 days w/ heart rate of 156bpm. There does not appear to be an acute need for immediate hospitalization. Your ultrasound did not show gallstones or liver problems. You are advised to follow up with your Primary Care Physician within 1 week. Please let them know about your rising LFT lab levels. You were given a prescription for Diclegis, anti-nausea medication. Please take as directed. Return to the ED immediately if you experience worsening vomiting, diarrhea, fever, vaginal bleeding or discharge, abdominal pain, chest pain or shortness of breath. - Post Discharge Activity
--- NOTE | 2018-06-10 22:04 | EKG ---
Test Reason : Blood Pressure : / mmHG Vent. Rate : 068 BPM Atrial Rate : 068 BPM P-R Int : 158 ms QRS Dur : 082 ms QT Int : 416 ms P-R-T Axes : 051 074 058 degrees QTc Int : 442 ms NORMAL SINUS RHYTHM NORMAL ECG NO PREVIOUS ECGS AVAILABLE Confirmed by MARK PORTILLO MD ([id number]) on 06/10/2018 10:03:40 PM Referred By: Confirmed By:MARK PORTILLO MD
== END 2018-06-10 00:58 | disposition home or self-care (01) ==
LOC: JER 17:44
PROC: 3E033GC Introduction of Other Therapeutic Substance into Peripheral Vein, Percutaneous Approach (ICD-10-PCS; principal; 2018-06-09)
PROC: 3E033GC Introduction of Other Therapeutic Substance into Peripheral Vein, Percutaneous Approach (ICD-10-PCS; 2018-06-09)
DX: O26.891 Other specified pregnancy related conditions, first trimester (principal); O21.0 Mild hyperemesis gravidarum; Z3A.01 Less than 8 weeks gestation of pregnancy; O99.011 Anemia complicating pregnancy, first trimester
CPT/HCPCS: 36415; 76705-TC; 76801-TC; 80053; 81003; 81015; 84702; 85025; 93005; 93010; 96365; 96375; 99282-25; J7030

== ENCOUNTER 2018-06-26 15:28 | Observation (INO) | payer OTHER ==
--- NOTE | 2018-06-26 15:54 | PDOC ---
History of Present Illness - History of Present Illness Initial Comments: 06/26/18 16:06 Ms. 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 Patient reports she has had hyperemesis gravidarum in the past however it has never been this bad in the past. Patient has been in close contact with her PREMIX OPERATOR CONCENTRATE regarding this. Reports she took pepcid and reglan today to no effect. Has also been taking vitamin B6 however this has also not been helpful. The patient denies chest pain, shortness of breath, and headache. Denies fever, chills, diarrhea and constipation. Denies dysuria, frequency, urgency and hematuria. <Jarocho Silva - Last Filed: 06/26/18 18:45> <Nat Doan - Last Filed: 06/26/18 19:07> - General Chief Complaint: Syncope/Near Syncope Stated Complaint: BACK PAIN Time Seen by Provider: 06/26/18 15:54 Past History - Past Medical History Anemia: Yes COPD: No - Immunization History Immunization Up to Date: Yes - Suicide/Smoking/Psychosocial Hx Smoking History: Never smoked Have you smoked in the past 12 months: No If you are a former smoker, when did you quit?: years ago Hx Alcohol Use: No Drug/Substance Use Hx: No <Jarocho Silva - Last Filed: 06/26/18 18:45> <Nat Doan - Last Filed: 06/26/18 19:07> - Past Medical History Allergies/Adverse Reactions: Allergies Allergy/AdvReac Type Severity Reaction Status Date / Time No Known Allergies Allergy Verified 06/26/18 15:40 Home Medications: Ambulatory Orders Metoclopramide HCl [Reglan] 10 mg PO Q8H #15 tablet 05/31/18 Prenat 115/Iron Fum/Folic/Dss [ 19 Tablet] 1 each PO DAILY 05/31/18 Doxylamine Succinate/Vit B6 [Zari Antonio 10-10 mg Tablet] 1 each PO TID PRN 30 Days #21 tablet. 06/10/18 Metoclopramide HCl [Reglan] 5 mg PO TID PRN 7 Days #21 tablet 06/10/18 Review of Systems - Review of Systems Comments:: 06/26/18 16:18 GENERAL/CONSTITUTIONAL: No fever or chills. No weakness. HEAD, EYES, EARS, NOSE AND THROAT: No change in vision. No ear pain or discharge. No sore throat. CARDIOVASCULAR: No chest pain or shortness of breath RESPIRATORY: No cough, wheezing, or hemoptysis. GASTROINTESTINAL: +RUQ pain x 2 days with additional N/V as described. No diarrhea or constipation. GENITOURINARY: No dysuria, frequency, or change in urination. MUSCULOSKELETAL: No joint or muscle swelling or pain. No neck or back pain. SKIN: No rash NEUROLOGIC: No headache, vertigo, loss of consciousness, or change in strength/ sensation. ENDOCRINE: No increased thirst. No abnormal weight change HEMATOLOGIC/LYMPHATIC: No anemia, easy bleeding, or history of blood clots. ALLERGIC/IMMUNOLOGIC: No hives or skin allergy. <Jarocho Silva - Last Filed: 06/26/18 18:45> *Physical Exam - Vital Signs Last Vital Signs Temp Pulse Resp BP Pulse Ox 97.9 F 99 H 16 105/81 99 06/26/18 15:40 06/26/18 15:40 06/26/18 15:40 06/26/18 15:40 06/26/18 15:40 - Physical Exam Comments: 06/26/18 16:18 GENERAL: Awake, alert, and fully oriented, in no acute distress HEAD: No signs of trauma, normocephalic, atraumatic EYES: PERRLA, EOMI, sclera anicteric, conjunctiva clear ENT: Auricles normal inspection, hearing grossly normal, nares patent, oropharynx clear without exudates. Moist mucosa NECK: Normal ROM, supple, no lymphadenopathy, JVD, or masses LUNGS: No distress, speaks full sentences, clear to auscultation bilaterally HEART: Regular rate and rhythm, normal S1 and S2, no murmurs, rubs or gallops, peripheral pulses normal and equal bilaterally. ABDOMEN: +RUQ TTP. Soft, nontender, normoactive bowel sounds. No guarding, no rebound. No masses EXTREMITIES: Normal inspection, Normal range of motion, no edema. No clubbing or cyanosis. NEUROLOGICAL: Cranial nerves II through XII grossly intact. Normal speech, normal gait, no focal sensorimotor deficits SKIN: Warm, Dry, normal turgor, no rashes or lesions noted. <Jarocho Silva - Last Filed: 06/26/18 18:45> - Vital Signs Last Vital Signs Temp Pulse Resp BP Pulse Ox 97.9 F 99 H 16 105/81 99 06/26/18 15:40 06/26/18 15:40 06/26/18 15:40 06/26/18 15:40 06/26/18 15:40 <Nat Doan - Last Filed: 06/26/18 19:07> Moderate Sedation - Procedure Monitoring Vital Signs: Procedure Monitoring Vital Signs Temperature 97.9 F 06/26/18 15:40 Pulse Rate 99 H 06/26/18 15:40 Respiratory Rate 16 06/26/18 15:40 Blood Pressure 105/81 06/26/18 15:40 O2 Sat by Pulse Oximetry (%) 99 06/26/18 15:40 <Jarocho Silva - Last Filed: 06/26/18 18:45> - Procedure Monitoring Vital Signs: Procedure Monitoring Vital Signs Temperature 97.9 F 06/26/18 15:40 Pulse Rate 99 H 06/26/18 15:40 Respiratory Rate 16 06/26/18 15:40 Blood Pressure 105/81 06/26/18 15:40 O2 Sat by Pulse Oximetry (%) 99 06/26/18 15:40 <Nat Doan - Last Filed: 06/26/18 19:07> ED Treatment Course - LABORATORY CBC & Chemistry Diagram: 06/26/18 16:32 06/26/18 16:14 <Jarocho Silva - Last Filed: 06/26/18 18:45> - LABORATORY CBC & Chemistry Diagram: 06/26/18 16:32 06/26/18 16:14 - ADDITIONAL ORDERS Additional order review: Laboratory Results 06/26/18 16:14 Sodium 134 L Potassium 3.7 Chloride 102 Carbon Dioxide 25 Anion Gap 7 L BUN 8 Creatinine 0.4 L Creat Clearance w eGFR > 60 Random Glucose 86 Calcium 9.0 Total Bilirubin 1.5 H AST 49 H ALT 163 H Alkaline Phosphatase 141 H Creatine Kinase 21 L Troponin I < 0.02 Total Protein 7.5 Albumin 3.2 L 06/26/18 16:32 RBC 4.22 MCV 84.0 MCHC 34.9 RDW 13.2 MPV 8.9 Neutrophils % 82.3 Lymphocytes % 8.7 D Monocytes % 8.2 Eosinophils % 0.3 Basophils % 0.5 - Medications Given in the ED: ED Medications Discontinued Medications Generic Name Dose Route Start Last Admin Trade Name Fresandy PRN Reason Stop Dose Admin Sodium Chloride 1,000 mls @ 1,000 mls/hr 06/26/18 16:14 06/26/18 16:35 Normal Saline - IV 06/26/18 17:13 1,000 mls/hr ASDIR STA Administration Dextrose/Sodium Chloride 1,000 mls @ 1,000 mls/hr 06/26/18 16:37 06/26/18 17: 11 D5-Ns - IV 06/26/18 17:36 Not Given ONCE ONE Lidocaine 1 patch 06/26/18 17:09 06/26/18 17:34 Lidoderm Patch - TP 06/26/18 17:10 Not Given ONCE ONE Ondansetron HCl 4 mg 06/26/18 16:19 06/26/18 16:35 Zofran Injection IVPUSH 06/26/18 16:20 4 mg ONCE ONE Administration <Nat Doan - Last Filed: 06/26/18 19:07> Medical Decision Making - Medical Decision Making 06/26/18 17:57 Ms. Oh is a 28 yo female w/ pmh as described who presents for evaluation of symptoms concerning for severe dehydration vs. cardiac process vs. gastritis. Patient reports she has not been able to keep anything down PO in 1-2 weeks. Patient noted to have tea-colored urine upon exam. Patient very dehydrated; D5 1 /2 NS given for fluid repletion. RUQ US ordered given patient's reported RUQ pain. Patient also reports she has had cough lately and son has positive strep throat. Strep swab sent (negative). 06/26/18 18:03 Patient's PREMIX OPERATOR [employer]CENTR[employer] (Dr. Nelson) paged. Patient will be admitted for hydration and further care. 06/26/18 18:[address] Nelson who recommends further hydration with D5 NS and reglan for nausea/vomiting as well as PO trials as tolerated and will follow in hospital. <Jarocho Silva - Last Filed: 06/26/18 18:45> *DC/Admit/Observation/Transfer - Discharge Dispostion Decision to Admit order: Yes <Jarocho Silva - Last Filed: 06/26/18 18:45> - Discharge Dispostion Decision to Admit order: Yes Decision to Admit order Date/Time: 06/26/18 19:07 <Nat Doan - Last Filed: 06/26/18 19:07> Diagnosis at time of Disposition: Hyperemesis - Discharge Dispostion Condition at time of disposition: Good
[2018-06-26] MEDS ORDERED: SODIUM CHLORIDE 1,000 ML IV STA ×2 (16:14→18:03)
[2018-06-26] MEDS ORDERED: ONDANSETRON 4 MG/2 ML VIAL IVPUSH ONE (16:19)
[2018-06-26] MEDS ORDERED: ONDANSETRON 4 MG/2 ML VIAL ONE (16:24)
[2018-06-26] MEDS ORDERED: DEXTROSE 5%-NORMAL SALINE 1,000 ML IV ONE (16:37)
[2018-06-26 16:42] LABS: BASO % 0.5 % (0-2.0); EOS % 0.3 % (0-4.5); HEMATOCRIT 35.4 % (32.4-45.2); HEMOGLOBIN 12.4 GM/dL (10.7-15.3); LYMPH % 8.7 % (8-40); MCH 29.3 pg (25.7-33.7); MCHC 34.9 g/dl (32.0-36.0); MEAN PLT VOLUME 8.9 fl (7.5-11.1); MONO % 8.2 % (3.8-10.2); NEUT % 82.3 % (42.8-82.8); PLATELET COUNT 249 K/MM3 (134-434); RBC 4.22 M/mm3 (3.60-5.2); RDW 13.2 % (11.6-15.6); WHITE BLOOD COUNT 10.4 K/mm3 (4.0-10.0)
[2018-06-26] MEDS ORDERED: DEXTROSE 5%-0.45% SALINE 1,000 ML IV SCH (16:45)
--- NOTE | 2018-06-26 16:55 | PDOC ---
Attending Attestation - Resident Resident Name: Jarocho Silva - ED Attending Attestation I have performed the following: I have examined & evaluated the patient, The case was reviewed & discussed with the resident, I agree w/resident's findings & plan - HPI HPI: 06/26/18 16:54\ Ms. Gerry Oh is a 28 year old female , currently 10 w with a past medical history significant for anemia, presents to the emergency department with s/p multiple episodes of nausea and NBNB vomiting, a/w intermittent epigastric and RUQ pain, difficulty tolerating PO intake with multiple episodes of N/V worsening x 2 days. today she has had only 1 urine output, with very dark brown discoloration. today she felt very dizzy/lightheaded, causing her to fall and nearly pass out , with mild back pain. no head trauma. she has duration of intermittent nausea and vomiting (non bloody, non bilious) for duration of her x 2 months. she has endorsed prior one week of worsening epigastric abdominal pain with rising LFTs that is being monitored, alleviated with eating and worsened without eating. The patient states her LMP was 04/14/18. No AP, VB, cp, sob, urinary sx, redding, neuro changes, urinary sx. Has been taking tums and pepcid ac without relief. she has been trying to drink fluids. 06/26/18 16:54 06/26/18 17:36 06/26/18 19:05 - Physicial Exam PE: 06/26/18 16:54 NAD, malaised, PERRL, EOMI, dry mucus membranes, nl conjunctiva, anicteric; neck supple. lungs clear, RRR, abdomen soft mild RUQ tenderness, neg esquivel's sign, no rebound or guarding. no cvat. LEWIS x4, no focal neuro deficits. No peripheral edema. normal color for ethnicity, WWP. 06/26/18 17:38 - Medical Decision Making 06/26/18 17:39 See HPI for details Vital signs reviewed, wnl. Prior notes reviewed, including admissions, discharges and consultations. laboratory results and imaging reviewed, basic labs and lytes wnl, notable for mild elevation in LFTs, relatively stable compared to prior results strep neg, f/u culture bedside urine very dark and tea colored, appears very dehydrated UA_pending, but appears tea colored and dark EKG normal sinus rhythm at 75 bpm, no interval abnormalities, narrow QRS, ST and T wave segments and morphology normal. ED course: IVF, antiemetics, dextrose, supportive care given multiple ED visits and hyperemesis sx poorly controlled with prior zofran/ reglan/diclegis, admit for close monitoring hydration and medical management. primary OB Dr Nelson made aware and agreeable. admit to Dr Angeles Admit observation for hyperemesis of with moderate dehydration (low urinary output, unable to keep PO down). Discussed results and management plan with pt , agree with impression and plan 06/26/18 18:36 06/26/18 19:05 06/26/18 19:07 06/29/18 10:10 Procedures - Bedside Ultrasound Other: Pelvic Remarks: 06/26/18 19:06 Bedside pelvic US performed for female for FHR check. views obtained: TV and sagittal pelvic, findings include live IUP visualized dated at 9w 6d, FHR ~154 bpm. Impression: live IUP visualized.
[2018-06-26] MEDS ORDERED: LIDOCAINE 5% TOPICAL PATCH TP ONE (17:09)
[2018-06-26 17:18] LABS: ALBUMIN 3.2 g/dl (3.4-5.0); ALK PHOS 141 U/L (45-117); ANION GAP 7 MMOL/L (8-16); BILIRUBIN,TOTAL 1.5 mg/dL (0.2-1); BLOOD UREA NITROGEN 8 mg/dL (7-18); CHLORIDE 102 mmol/L (98-107); CO2 25 mmol/L (21-32); CREATININE 0.4 mg/dL (0.55-1.3); GLUCOSE,RANDOM 86 mg/dL (74-106); POTASSIUM 3.7 mmol/L (3.5-5.1); SGOT/AST 49 U/L (15-37); SGPT/ALT 163 U/L (13-61); SODIUM 134 mmol/L (136-145); TOT PROT 7.5 g/dl (6.4-8.2)
[2018-06-26] MEDS ORDERED: LIDOCAINE 5% TOPICAL PATCH ONE (17:18)
[2018-06-26 18:51] LABS: URINE APPEARANCE SLCLOUDY; URINE COLOR AMBER; URINE GLUCOSE (UA) NEGATIVE (NEGATIVE); URINE KETONE 2+ (NEGATIVE); URINE LEUK ESTERASE NEGATIVE (NEGATIVE); URINE NITRITE NEGATIVE (NEGATIVE); URINE PROTEIN 1+ (NEGATIVE); URINE UROBILINOGEN 4.0 E.U/dl mg/dL (0.2-1.0)
[2018-06-26 19:36] LABS: EPI CELLS FEW /HPF (FEW); URINE BACTERIA RARE /hpf (NONE SEEN); URINE HYALINE CAST 2 /lpf; URINE MUCUS MANY
--- NOTE | 2018-06-26 21:49 | HP ---
Admitting History and Physical - Primary Care Physician PCP: Dena Angeles - Admission History of Present Illness: Ms. 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 Patient reports she has had hyperemesis gravidarum in the past however it has never been this bad in the past. Patient has been in close contact with her CONCESSIONS MANAGER regarding this. Reports she took pepcid and reglan today to no effect. Has also been taking vitamin B6 however this has also not been helpful. - Smoking History Smoking history: Never smoked Have you smoked in the past 12 months: No If you are a former smoker, when did you quit?: years ago - Alcohol/Substance Use Hx Alcohol Use: No Home Medications - Allergies Allergies/Adverse Reactions: Allergies Allergy/AdvReac Type Severity Reaction Status Date / Time No Known Allergies Allergy Verified 06/26/18 15:40 - Home Medications Home Medications: Ambulatory Orders Metoclopramide HCl [Reglan] 10 mg PO Q8H #15 tablet 05/31/18 Prenat 115/Iron Fum/Folic/Dss [ 19 Tablet] 1 each PO DAILY 05/31/18 Doxylamine Succinate/Vit B6 [Zari Antonio 10-10 mg Tablet] 1 each PO TID PRN 30 Days #21 tablet. 06/10/18 Metoclopramide HCl [Reglan] 5 mg PO TID PRN 7 Days #21 tablet 06/10/18 Physical Examination Vital Signs: Vital Signs Temperature 97.9 F 06/26/18 15:40 Pulse Rate 99 H 06/26/18 15:40 Respiratory Rate 16 06/26/18 15:40 Blood Pressure 105/81 06/26/18 15:40 O2 Sat by Pulse Oximetry (%) 99 06/26/18 15:40 Constitutional: Yes: No Distress HENT: Yes: Atraumatic Neck: Yes: Supple Cardiovascular: Yes: Regular Rate and Rhythm Respiratory: Yes: CTA Bilaterally Gastrointestinal: Yes: Normal Bowel Sounds Extremities: Yes: WNL Edema: No Peripheral Pulses WNL: Yes Neurological: Yes: Alert, Oriented Labs: CBC, BMP 03/11/19 16:32 06/26/18 16:14 Imaging - Results Ultrasound: Report Reviewed Problem List - Problems (1) Hyperemesis gravidarum Assessment/Plan: ivf reglan and protonix per attending Code(s): O21.0 - MILD HYPEREMESIS GRAVIDARUM (2) Code(s): Z34.90 - ENCNTR FOR SUPRVSN OF NORMAL , UNSP, UNSP TRIMESTER Assessment/Plan Laboratory Tests 06/26/18 06/26/18 06/26/18 16:14 16:32 17:35 WBC 10.4 H RBC 4.22 Hgb 12.4 Hct 35.4 MCV 84.0 MCH 29.3 MCHC 34.9 RDW 13.2 Plt Count 249 MPV 8.9 Absolute Neuts (auto) 8.6 H Neutrophils % 82.3 Lymphocytes % 8.7 D Monocytes % 8.2 Eosinophils % 0.3 Basophils % 0.5 Nucleated RBC % 0 Sodium 134 L Potassium 3.7 Chloride 102 Carbon Dioxide 25 Anion Gap 7 L BUN 8 Creatinine 0.4 L Creat Clearance w eGFR > 60 Random Glucose 86 Calcium 9.0 Total Bilirubin 1.5 H AST 49 H ALT 163 H Alkaline Phosphatase 141 H Creatine Kinase 21 L Troponin I < 0.02 Total Protein 7.5 Albumin 3.2 L Urine Color [place] Urine Appearance Slcloudy Urine pH 6.0 Ur Specific [place] 1.029 Urine Protein 1+ H Urine Glucose (UA) Negative Urine Ketones 2+ H Urine Blood Negative Urine Nitrite Negative Urine Bilirubin 2.0 Urine Urobilinogen 4.0 e.u/dl H Ur Leukocyte Esterase Negative Urine WBC (Auto) 4 Urine RBC (Auto) 2 Ur Epithelial Cells Few Urine Bacteria Rare Hyaline Casts 2 Urine Mucus Many Group A Strep Rapid Blood Type Antibody Screen 06/26/18 06/26/18 17:35 18:10 WBC RBC Hgb Hct MCV MCH MCHC RDW Plt Count MPV Absolute Neuts (auto) Neutrophils % Lymphocytes % Monocytes % Eosinophils % Basophils % Nucleated RBC % Sodium Potassium Chloride Carbon Dioxide Anion Gap BUN Creatinine Creat Clearance w eGFR Random Glucose Calcium Total Bilirubin AST ALT Alkaline Phosphatase Creatine Kinase Troponin I Total Protein Albumin Urine Color Urine Appearance Urine pH Ur Specific [place] Urine Protein Urine Glucose (UA) Urine Ketones Urine Blood Urine Nitrite Urine Bilirubin Urine Urobilinogen Ur Leukocyte Esterase Urine WBC (Auto) Urine RBC (Auto) Ur Epithelial Cells Urine Bacteria Hyaline Casts Urine Mucus Group A Strep Rapid Negative Blood Type A POSITIVE Antibody Screen Negative Active Medications Generic Name Dose Route Start Last Admin Trade Name Freq PRN Reason Stop Dose Admin Dextrose/Sodium Chloride 1,000 mls @ 0 mls/hr 06/26/18 16:45 06/26/18 16:46 D5-1/2ns - IV 1,000 mls/hr ASDIR INGRID Administration Wide Open Miscellaneous 1 each 06/26/18 22:00 Lidoderm Patch Removal MC DAILY@2200 [facility] Non-Formulary Medication 1 each 06/27/18 10:00 Prenat 115/Iron Fum/Folic/Dss [ 19 Tablet] PO DAILY [facility]
[2018-06-26] MEDS ORDERED: LIDOCAINE PATCH REMOVAL MC SCH (22:00)
[2018-06-26] MEDS ORDERED: ACETAMINOPHEN 325 MG TABLET (FP) PO PRN (22:03)
[2018-06-26] MEDS: DEXTROSE 5%-LACTATED RINGERS 1,000 ML IV SCH (22:24)
[2018-06-26] MEDS: PANTOPRAZOLE SODIUM 40 MG VIAL IVPUSH SCH (22:24)
[2018-06-26] MEDS: METOCLOPRAMIDE HCL INJECTION 10 MG/2 ML VIAL IVPUSH PRN (22:27)
[2018-06-26 22:50] VITALS: BMI 31.3
[2018-06-27] MEDS ORDERED: BENZOCAINE/MENTH/CETYLPYRD CL 1 EACH LOZENGE MM PRN (04:24)
[2018-06-27 07:57] LABS: BASO % 0.3 % (0-2.0); EOS % 0.8 % (0-4.5); HEMATOCRIT 28.5 % (32.4-45.2); MCH 29.3 pg (25.7-33.7); MCHC 35.1 g/dl (32.0-36.0); MEAN CELL VOLUME 83.6 fl (80-96); MEAN PLT VOLUME 9.1 fl (7.5-11.1); MONO % 8.4 % (3.8-10.2); NEUT % 82.5 % (42.8-82.8); PLATELET COUNT 196 K/MM3 (134-434); RBC 3.41 M/mm3 (3.60-5.2); WHITE BLOOD COUNT 6.7 K/mm3 (4.0-10.0)
[2018-06-27 08:28] LABS: ALBUMIN 2.6 g/dl (3.4-5.0); ALK PHOS 121 U/L (45-117); ANION GAP 7 MMOL/L (8-16); BILIRUBIN,TOTAL 1.3 mg/dL (0.2-1); BLOOD UREA NITROGEN 5 mg/dL (7-18); CALCIUM 8.3 mg/dL (8.5-10.1); CHLORIDE 105 mmol/L (98-107); CO2 24 mmol/L (21-32); CREATININE 0.5 mg/dL (0.55-1.3); GLUCOSE,RANDOM 107 mg/dL (74-106); POTASSIUM 3.6 mmol/L (3.5-5.1); SGOT/AST 39 U/L (15-37); SGPT/ALT 128 U/L (13-61); SODIUM 136 mmol/L (136-145); TOT PROT 6.2 g/dl (6.4-8.2)
[2018-06-27] MEDS: PANTOPRAZOLE SODIUM 40 MG VIAL IVPUSH SCH (09:48)
[2018-06-27] MEDS: PRENATAL VITAMINS W/ FOLIC ACID TABLET (FP) PO SCH (09:49)
--- NOTE | 2018-06-27 10:39 | CON.OBG ---
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 Sanjuanita, never completed the course of therapy. She has h/o Hyperemesis with every . She was instructed to go to ER if feels dehydrated. She however stopped urinating from dehydration and had near loss of conciosnes episode, and was brought to the ER by . She recieved 2L of IVF in the ER and Zofran. Her main complain currently is Upper GI discomfort and throat pain, likely sick contacts at home History of Present Illness: I had prescribed B6, Unysome, Pepcid AC, and Reglan with minimal improvement. I recommended that if dehydrated she needs to go to ER for IV hydration - History Source History Provided By: Patient, Significant Other Limitations to Obtaining History: No Limitations - Past Medical History Gastrointestinal: Yes: GERD ...: Yes ...: 5 ...Para: 4 (FT x 4 @ [facility]) Heme/Onc: Yes: Anemia (Iron defficience) - Past Surgical History Past Surgical History: Yes: None - Alcohol/Substance Use Hx Alcohol Use: No History of Substance Use: reports: None - Smoking History Smoking history: Never smoked Have you smoked in the past 12 months: No If you are a former smoker, when did you quit?: years ago - Social History Usual Living Arrangement: With Spouse Occupation: Homemaker Place of : Other (Merged With [employer] [facility]) History of Recent Travel: No Home Medications - Allergies Allergies/Adverse Reactions: Allergies Allergy/AdvReac Type Severity Reaction Status Date / Time No Known Allergies Allergy Verified 06/26/18 15:40 - Home Medications Home Medications: Ambulatory Orders Metoclopramide HCl [Reglan] 10 mg PO Q8H #15 tablet 05/31/18 Prenat 115/Iron Fum/Folic/Dss [ 19 Tablet] 1 each PO DAILY 05/31/18 Doxylamine Succinate/Vit B6 [Zari Antonio 10-10 mg Tablet] 1 each PO TID PRN 30 Days #21 tablet. 06/10/18 Metoclopramide HCl [Reglan] 5 mg PO TID PRN 7 Days #21 tablet 06/10/18 Family Disease History - Family Disease History Family History: Denies Review of Systems - Review of Systems Constitutional: reports: Chills, Loss of Appetite, Weakness Eyes: reports: No Symptoms HENT: reports: No Symptoms Neck: reports: No Symptoms Cardiovascular: reports: No Symptoms Respiratory: reports: No Symptoms Gastrointestinal: reports: Abdominal Pain, Indigestion, Nausea, Vomiting Genitourinary: reports: No Symptoms Breasts: reports: No Symptoms Reported Musculoskeletal: reports: No Symptoms Integumentary: reports: No Symptoms Neurological: reports: No Symptoms Endocrine: reports: No Symptoms Hematology/Lymphatic: reports: No Symptoms Psychiatric: reports: No Symptoms Physical Exam-SANITIZER Vital Signs: Vital Signs Temperature 98.7 F 06/27/18 04:00 Pulse Rate 96 H 06/27/18 04:00 Respiratory Rate 20 06/27/18 04:00 Blood Pressure 107/61 06/27/18 04:00 O2 Sat by Pulse Oximetry (%) 98 06/26/18 23:01 Constitutional: Yes: Well Nourished, No Distress, Calm Eyes: Yes: WNL HENT: Yes: WNL, Atraumatic, Normocephalic, Other (no erythema or Lymphoadenopathy) Neck: Yes: WNL, Supple, Trachea Midline Cardiovascular: Yes: WNL, Regular Rate and Rhythm Respiratory: Yes: WNL, Regular, CTA Bilaterally Gastrointestinal: Yes: Normal Bowel Sounds, Other (Epigastric tenderness) Renal/: Yes: WNL Pelvis: Yes: WNL External Genitalia: Yes: Normal Internal Exam Deferred: No Extremities: Yes: WNL Edema: No Integumentary: Yes: WNL Neurological: Yes: WNL, Alert, Oriented ...Motor Strength: WNL Psychiatric: Yes: WNL, Alert, Oriented Labs: CBC, BMP 06/27/18 07:14 06/27/18 07:14 Assessment/Plan 28yo P4 @ 10.2 weeks, of desired 1. Moderate Hyperemesis Gravidarum complicated by GERD Currently s/p Pentoprazole x 2 IV, and Reglan IV, and IVF She feels some improvement and tolarated small amount of brat diet Cont. Pentoprazole and Reglan Consider sending home on Rectal suppository antiemetic 2. No obvious Strep infection Throat culture sent await culture results continue IV hydration and Tylenol for T<100.4 continue supportive care
--- NOTE | 2018-06-27 13:35 | EKG ---
Test Reason : Blood Pressure : / mmHG Vent. Rate : 075 BPM Atrial Rate : 075 BPM P-R Int : 164 ms QRS Dur : 084 ms QT Int : 388 ms P-R-T Axes : 073 068 049 degrees QTc Int : 433 ms NORMAL SINUS RHYTHM WITH SINUS ARRHYTHMIA POSSIBLE LEFT ATRIAL ENLARGEMENT T WAVE ABNORMALITY, CONSIDER ANTERIOR ISCHEMIA ABNORMAL ECG WHEN COMPARED WITH ECG OF 09-JUN-2018 22:27, NO SIGNIFICANT CHANGE WAS FOUND Confirmed by MD DAHLIA, JUNO ([id number]) on 06/27/2018 1:34:50 PM Referred By: Confirmed By:JUNO VILLAGOMEZ MD
[2018-06-27] MEDS: DEXTROSE 5%-LACTATED RINGERS 1,000 ML IV SCH (14:57)
[2018-06-27] MEDS: METOCLOPRAMIDE HCL INJECTION 10 MG/2 ML VIAL IVPUSH PRN (15:10)
--- NOTE | 2018-06-27 19:35 | PN ---
Progress Note, Physician History of Present Illness: MEDICAL COVERAGE - Current Medication List Current Medications: Active Medications Acetaminophen (Tylenol -) 650 mg PO Q6H PRN PRN Reason: TEMP OVER 100.4 Last Admin: 06/27/18 07:49 Dose: 650 mg Benzocaine/Menthol (Cepacol Lozenge -) 1 each MM Q2H PRN PRN Reason: SORE THROAT Last Admin: 06/27/18 04:31 Dose: 1 each Dextrose/Lactated Ringer's (D5-Lr -) 1,000 mls @ 125 mls/hr IV ASDIR [facility] Last Admin: 06/27/18 14:57 Dose: 125 mls/hr Metoclopramide HCl (Reglan Injection -) 10 mg IVPUSH Q6H PRN PRN Reason: NASUEA Last Admin: 06/27/18 15:10 Dose: 10 mg Pantoprazole Sodium (Protonix Iv) 20 mg IVPUSH DAILY [facility] Last Admin: 06/27/18 09:48 Dose: 20 mg Multivit/Folic Acid/Iron ( Vitamins (Sjr) -) 1 tab PO DAILY [facility] Last Admin: 06/27/18 09:49 Dose: Not Given - Objective Vital Signs: Vital Signs Temperature 99.1 F 06/27/18 16:00 Pulse Rate 86 06/27/18 16:00 Respiratory Rate 20 06/27/18 16:00 Blood Pressure 108/68 06/27/18 16:00 O2 Sat by Pulse Oximetry (%) 98 06/26/18 23:01 Constitutional: Yes: No Distress HENT: Yes: Atraumatic Neck: Yes: Supple Cardiovascular: Yes: Regular Rate and Rhythm Respiratory: Yes: CTA Bilaterally Gastrointestinal: Yes: Normal Bowel Sounds Extremities: Yes: WNL Edema: No Peripheral Pulses WNL: Yes Neurological: Yes: Alert, Oriented Labs: CBC, BMP 06/27/18 07:14 06/27/18 07:14 Problem List - Problems (1) Hyperemesis gravidarum Assessment/Plan: ivf reglan and protonix per attending Code(s): O21.0 - MILD HYPEREMESIS GRAVIDARUM (2) Code(s): Z34.90 - ENCNTR FOR SUPRVSN OF NORMAL , UNSP, UNSP TRIMESTER
[2018-06-28] MEDS: DEXTROSE 5%-LACTATED RINGERS 1,000 ML IV SCH (01:16)
[2018-06-28] MEDS: METOCLOPRAMIDE HCL INJECTION 10 MG/2 ML VIAL IVPUSH PRN (01:20)
--- NOTE | 2018-06-28 08:49 | PN ---
Progress Note (SOAP) - Subjective Chief Complaint: Feels better, tolerated PO w/o vomiting. Still has some nausea but controlled with Reglan. History of Present Illness: IUP at 10wk, hyperemesis gravidarum - Current Medications Current Medications: Active Medications Acetaminophen (Tylenol -) 650 mg PO Q6H PRN PRN Reason: TEMP OVER 100.4 Last Admin: 06/27/18 07:49 Dose: 650 mg Benzocaine/Menthol (Cepacol Lozenge -) 1 each MM Q2H PRN PRN Reason: SORE THROAT Last Admin: 06/27/18 04:31 Dose: 1 each Dextrose/Lactated Ringer's (D5-Lr -) 1,000 mls @ 125 mls/hr IV ASDIR [facility] Last Admin: 06/28/18 01:16 Dose: 125 mls/hr Metoclopramide HCl (Reglan Injection -) 10 mg IVPUSH Q6H PRN PRN Reason: NASUEA Last Admin: 06/28/18 01:20 Dose: 10 mg Pantoprazole Sodium (Protonix Iv) 20 mg IVPUSH DAILY [facility] Last Admin: 06/27/18 09:48 Dose: 20 mg Multivit/Folic Acid/Iron ( Vitamins (Sjr) -) 1 tab PO DAILY [facility] Last Admin: 06/27/18 09:49 Dose: Not Given - Objective Vital Signs: Vital Signs Temperature 98.3 F 06/28/18 04:00 Pulse Rate 85 06/28/18 04:00 Respiratory Rate 20 06/28/18 04:00 Blood Pressure 103/62 06/28/18 04:00 O2 Sat by Pulse Oximetry (%) 98 06/26/18 23:01 Constitutional: Yes: Well Nourished, No Distress, Calm Eyes: Yes: WNL, Conjunctiva Clear, EOM Intact HENT: Yes: WNL, Atraumatic, Normocephalic Neck: Yes: WNL Cardiovascular: Yes: WNL, Regular Rate and Rhythm Respiratory: Yes: WNL, Regular, CTA Bilaterally Gastrointestinal: Yes: WNL, Normal Bowel Sounds, Soft Genitourinary: Yes: WNL Musculoskeletal: Yes: WNL Extremities: Yes: WNL Peripheral Pulses WNL: Yes Edema: No Integumentary: Yes: WNL Neurological: Yes: WNL, Alert, Oriented ...Motor Strength: Yes: WNL Psychiatric: Yes: WNL, Alert, Oriented Labs Lab Results: CBC, BMP 06/27/18 07:14 06/27/18 07:14 Assessment/Plan 28yo with IUP at 10wk, admitted due to dehydration with hyperemsis. Pt is improved with anti-emetic tx. She is able to tolerate PO intake. Plan to d/c home. She has Reglan at home. Hyperemesis precautions were reviewed. Advised to come to ER if unable to tolerate fluids F/u in office next week.
[2018-06-28] MEDS: PRENATAL VITAMINS W/ FOLIC ACID TABLET (FP) PO SCH (09:17)
[2018-06-28] MEDS: PANTOPRAZOLE SODIUM 40 MG VIAL IVPUSH SCH (12:22)
[2018-06-28 12:25] VITALS: BP 110/63; PULSE 88; TEMP 98.6
== END 2018-06-28 14:00 | disposition home or self-care (01) ==
LOC: JER 15:28 → JERBED 17:53 → J6S 21:07 → J3W 06-27 00:30
PROVIDERS: ADMIT Obstetrics & Gynecology; ATTEND Obstetrics & Gynecology
PROC: BY49ZZZ Ultrasonography of First Trimester, Single Fetus (ICD-10-PCS; principal; 2018-06-26)
PROC: 3E033GC Introduction of Other Therapeutic Substance into Peripheral Vein, Percutaneous Approach (ICD-10-PCS; 2018-06-26)
PROC: 3E0337Z Introduction of Electrolytic and Water Balance Substance into Peripheral Vein, Percutaneous Approach (ICD-10-PCS; 2018-06-26)
DX: O21.0 Mild hyperemesis gravidarum (principal); O99.011 Anemia complicating pregnancy, first trimester; Z3A.10 10 weeks gestation of pregnancy; R55 Syncope and collapse; E86.0 Dehydration; K21.9 Gastro-esophageal reflux disease without esophagitis
CPT/HCPCS: 36415; 76705-TC; 76801-TC; 80053; 81003; 81015; 82550; 84484; 85025; 86850; 86900; 86901; 87070; 87086; 87880; 93005; 93010; 96361; 96374; 96375; 99282-25; G0378; J7030

== ENCOUNTER 2018-07-05 09:53 | Emergency (ER) | payer OTHER ==
[2018-07-05 10:02] VITALS: TEMP 98; BMI 30.2
[2018-07-05] MEDS ORDERED: METOCLOPRAMIDE HCL INJECTION 10 MG/2 ML VIAL IM ONE (10:33)
[2018-07-05] MEDS ORDERED: FAMOTIDINE 20 MG/50 ML IVPB 20 MG/50 ML MG IVPB ONE ×2 (10:33→11:01)
[2018-07-05] MEDS ORDERED: LACTATED RINGERS SOLUTION 1000 ML INFUS.BAG IV ONE (10:34)
--- NOTE | 2018-07-05 10:43 | PDOC ---
History of Present Illness - General Chief Complaint: Nausea/Vomiting Stated Complaint: DEHYDRATION, Time Seen by Provider: 07/05/18 10:17 History Source: Patient Exam Limitations: Clinical Condition - History of Present Illness Initial Comments: 07/05/18 10:36 Patient with history of anemia, acid reflux and 11 weeks presenting with complaint of weakness and dehydration. Patient reports she was seen by her OB days morning and have looked normal by UA done showed that she is dehydrated and was told by OB to come to the emergency room for dehydration .patient report or unable to keep any food down. Patient was admitted a week ago for same symptoms and management of dehydration. Denies vaginal bleeding, abdominal pain or diarrhea. Denies fever or chills, cough. Patient report OB gave her phenergan suppository today to control her N/V and nexium for her acid reflux which she has not picked up from pharmacy yet Timing/Duration: other (3 days) Past History - Past Medical History Allergies/Adverse Reactions: Allergies Allergy/AdvReac Type Severity Reaction Status Date / Time No Known Allergies Allergy Verified 07/05/18 10:02 Home Medications: Ambulatory Orders Metoclopramide HCl [Reglan] 10 mg PO Q8H #15 tablet 05/31/18 Prenat 115/Iron Fum/Folic/Dss [ 19 Tablet] 1 each PO DAILY 05/31/18 Doxylamine Succinate/Vit B6 [Zari Antonio 10-10 mg Tablet] 1 each PO TID PRN 30 Days #21 tablet. 07/05/18 Anemia: Yes COPD: No - Immunization History Immunization Up to Date: Yes - Suicide/Smoking/Psychosocial Hx Smoking History: Never smoked Have you smoked in the past 12 months: No If you are a former smoker, when did you quit?: years ago Information on smoking cessation initiated: No Hx Alcohol Use: No Drug/Substance Use Hx: No Substance Use Type: None Review of Systems - Review of Systems Able to Perform ROS?: Yes Is the patient limited Sinhala proficient: No Constitutional: Yes: See HPI, Malaise, Weakness. No: Chills, Fever HEENTM: No: Symptoms Reported, See HPI, Eye Pain, Blurred Vision, Tearing, Recent change in vision, Double Vision, Cataracts, Ear Pain, Ocular Prothesis, Ear Discharge, Nose Pain, Nose Congestion, Tinnitus, Nose Bleeding, Hearing Loss , Throat Pain, Throat Swelling, Mouth Pain, Dental Problems, Difficulty Swallowing, Mouth Swelling, Other Respiratory: No: Symptoms reported, See HPI, Cough, Orthopnea, Shortness of Breath, SOB with Exertion, SOB at Rest, Stridor, Wheezing, Productive cough, Hemoptysis, Other Cardiac (ROS): No: Symptoms Reported, See HPI, Chest Pain, Edema, Irregular Heart Rate, Lightheadedness, Palpitations, Syncope, Chest Tightness, Other ABD/GI: Yes: See HPI, Nausea, Vomiting. No: Constipated, Diarrhea, Difficulty Swallowing, Abdominal cramping : No: Dysuria, Discharge, Hematuria, Urgency, Other (vaginal bleeding) Neurological: Yes: See HPI, Weakness. No: Headache, Numbness, Paresthesia, Tingling, Dizziness All Other Systems: Reviewed and Negative *Physical Exam - Vital Signs Last Vital Signs Temp Pulse Resp BP Pulse Ox 98 F 84 19 122/68 100 07/05/18 10:00 07/05/18 10:00 07/05/18 10:00 07/05/18 10:00 07/05/18 10:00 - Physical Exam Comments: 07/05/18 10:39 GENERAL: Well developed, well nourished. Awake and alert. No acute distress. HEENT: Normocephalic, atraumatic. PERRLA, EOMI. No conjunctival pallor. Sclera are non-icteric. Moist mucous membranes. Oropharynx is clear. NECK: Supple. Full ROM. CARDIOVASCULAR: Regular rate and rhythm. No murmurs, rubs, or gallops. Distal pulses are 2+ and symmetric. PULMONARY: No evidence of respiratory distress. Lungs clear to auscultation bilaterally. No wheezing, rales or rhonchi. ABDOMINAL: Soft. Non-tender. Non-distended. No rebound or guarding. No organomegaly. Normoactive bowel sounds. MUSCULOSKELETAL Normal range of motion at all joints. SKIN: Warm and dry. Normal capillary refill. No cyanosis. No rashes. Good skin turgor NEUROLOGICAL: Alert, awake, appropriate. Gait is normal without ataxia. PSYCHIATRIC: Cooperative. Good eye contact. Appropriate mood General Appearance: Yes: Nourished, Appropriately Dressed. No: Apparent Distress Moderate Sedation - Procedure Monitoring Vital Signs: Procedure Monitoring Vital Signs Temperature 98 F 07/05/18 10:00 Pulse Rate 84 03/20/19 10:00 Respiratory Rate 19 07/05/18 10:00 Blood Pressure 122/68 07/05/18 10:00 O2 Sat by Pulse Oximetry (%) 100 07/05/18 10:00 ED Treatment Course - LABORATORY CBC & Chemistry Diagram: 07/05/18 11:25 07/05/18 11:25 Medical Decision Making - Medical Decision Making 07/05/18 10:40 Patient 11 weeks with history of GERD and admitted the week ago for hyperemesis with dehydration present with complaint of weakness and dehydration after seen OB morning and was told by OB that she is dehydrated based on UA results as per patient. Clinical exam unremarkable. Patient in no acute distress. Good capillary refill and good skin turgor. UA, CBC, CMP urine culture ordered. IV fluids with lactated Ringer's 1 L. Pepcid 20 mg IV ordered. Reassess after fluid and labs. 07/05/18 15:26 CBC shows no acute findings. chemistry labs shows elevated LFTs which has been elevated on the last 3 visits in the last 2 months with U/S done at each visit with no acute findings. symptoms likely from hyperemesis. Spoke to Patient OB who advised to give patient D5LR for IV hydration and she gave patient follow- up instructions. Dr. Hernandez pt's OB indicates she sent patient here for IV hydration due to insurance issue and couldn't hydrate patient in the office. IV hydration with 1L LR given and pepcid and patient report improved symptoms. Patient able to tolerate PO water w/o vomit and requesting to eat. 2nd IV hydration with D5LR ordered and patient will be discharge on diclegis with OB follow-up if able to tolerate food. Referral also to GI to be given 07/05/18 17:43 Patient able to tolerate food and water without vomiting. stable for discharge. vit B6 given prior to discharge *DC/Admit/Observation/Transfer Diagnosis at time of Disposition: Hyperemesis, Nausea and vomiting during , Dehydration during - Discharge Dispostion Disposition: HOME Condition at time of disposition: Stable Decision to Admit order: No - Prescriptions Prescriptions: Doxylamine Succinate/Vit B6 [Zari Antonio 10-10 mg Tablet] 1 each PO TID PRN 30 Days #21 tablet.dr KHAN Reason: Nausea And/Or Vomiting - Referrals Referrals: Zane Hassan MD [Staff Physician] - - Patient Instructions Printed Discharge Instructions: DI for Hyperemesis Gravidarum Additional Instructions: Take medications as prescribed for nausea and vomiting. Increase fluid intake. Follow-up with OB for and follow-up with referred GI doctor Dr. Hassan for elevated liver enzymes - Post Discharge Activity
[2018-07-05] MEDS ORDERED: METOCLOPRAMIDE HCL INJECTION 10 MG/2 ML VIAL ONE ×2 (11:00→17:51)
[2018-07-05 11:39] LABS: BASO % 0.5 % (0-2.0); EOS % 0.5 % (0-4.5); HEMATOCRIT 34.7 % (32.4-45.2); HEMOGLOBIN 12.2 GM/dL (10.7-15.3); LYMPH % 15.2 % (8-40); MCH 29.5 pg (25.7-33.7); MCHC 35.1 g/dl (32.0-36.0); MEAN PLT VOLUME 9.2 fl (7.5-11.1); MONO % 6.2 % (3.8-10.2); NEUT % 77.6 % (42.8-82.8); PLATELET COUNT 301 K/MM3 (134-434); RBC 4.13 M/mm3 (3.60-5.2); RDW 12.8 % (11.6-15.6); WHITE BLOOD COUNT 11.3 K/mm3 (4.0-10.0)
[2018-07-05 12:13] LABS: ALK PHOS 131 U/L (45-117); ANION GAP 6 MMOL/L (8-16); BILIRUBIN,TOTAL 1.2 mg/dL (0.2-1); BLOOD UREA NITROGEN 8 mg/dL (7-18); CHLORIDE 100 mmol/L (98-107); CO2 26 mmol/L (21-32); CREATININE 0.4 mg/dL (0.55-1.3); GLUCOSE,RANDOM 80 mg/dL (74-106); POTASSIUM 4.3 mmol/L (3.5-5.1); SGOT/AST 51 U/L (15-37); SGPT/ALT 143 U/L (13-61); SODIUM 133 mmol/L (136-145); TOT PROT 7.5 g/dl (6.4-8.2)
--- NOTE | 2018-07-05 13:05 | PDOC ---
*Physical Exam - Vital Signs Last Vital Signs Temp Pulse Resp BP Pulse Ox 98 F 84 19 122/68 100 07/05/18 10:00 07/05/18 10:00 07/05/18 10:00 07/05/18 10:00 07/05/18 10:00 ED Treatment Course - LABORATORY CBC & Chemistry Diagram: 07/05/18 11:25 07/05/18 11:25 - ADDITIONAL ORDERS Additional order review: Laboratory Results 07/05/18 07/05/18 11:25 11:25 Sodium 133 L Potassium 4.3 Chloride 100 Carbon Dioxide 26 Anion Gap 6 L BUN 8 Creatinine 0.4 L Creat Clearance w eGFR 187.42 Random Glucose 80 Calcium 9.0 Total Bilirubin 1.2 H AST 51 H ALT 143 H Alkaline Phosphatase 131 H Total Protein 7.5 Albumin 3.0 L Blood Type A POSITIVE Antibody Screen Negative 07/05/18 11:25 RBC 4.13 MCV 84.0 MCHC 35.1 RDW 12.8 MPV 9.2 Neutrophils % 77.6 Lymphocytes % 15.2 D Monocytes % 6.2 Eosinophils % 0.5 Basophils % 0.5 - Medications Given in the ED: ED Medications Discontinued Medications Generic Name Dose Route Start Last Admin Trade Name Freq PRN Reason Stop Dose Admin Famotidine/Sodium Chloride 20 mg in 50 mls @ 100 mls/hr 07/05/18 10:33 11:15 Pepcid 20 Mg Premixed Ivpb - IVPB 07/05/18 11:02 100 mls/hr ONCE ONE Administration Lactated Ringer's 1,000 ml 07/05/18 10:34 07/05/18 11:15 Lactated Ringers Solution IV 07/05/18 10:35 1,000 ml ONCE ONE Administration Metoclopramide HCl 10 mg 07/05/18 10:33 07/05/18 11:30 Reglan Injection - IM 07/05/18 10:34 Not Given ONCE ONE Medical Decision Making - Medical Decision Making 07/05/18 13:04 28 yo F presenting with vomiting Was seen by OB and sent to the ER for evaluation Labs sent Laboratory Tests 07/05/18 07/05/18 11:25 11:25 WBC 11.3 H Hgb 12.2 Hct 34.7 D Plt Count 301 D Sodium 133 L Potassium 4.3 Chloride 100 Carbon Dioxide 26 BUN 8 Creatinine 0.4 L Total Bilirubin 1.2 H AST 51 H ALT 143 H US 07/05/18 16:44 Transaminitis persistently noted on pt labs US negative for biliary colic 07/05/18 16:[address] Angeles to place on observation She recommends call to professor of theater Call placed to pt professor of theater She recommends IV hydration and discharge after more IVF Will attempt to PO challenge Clinical Impression: Hyperemesis gravidarium, repeat presentation *DC/Admit/Observation/Transfer Diagnosis at time of Disposition: Hyperemesis, Nausea and vomiting during , Dehydration during - Discharge Dispostion Disposition: HOME Condition at time of disposition: Stable - Prescriptions Prescriptions: Doxylamine Succinate/Vit B6 [Zari Antonio 10-10 mg Tablet] 1 each PO TID PRN 30 Days #21 tablet.dr KHAN Reason: Nausea And/Or Vomiting - Referrals Referrals: Zane Hassan MD [Staff Physician] - - Patient Instructions Printed Discharge Instructions: DI for Hyperemesis Gravidarum Additional Instructions: Take medications as prescribed for nausea and vomiting. Increase fluid intake. Follow-up with OB for and follow-up with referred GI doctor Dr. Hassan for elevated liver enzymes - Post Discharge Activity
[2018-07-05 14:24] LABS: URINE APPEARANCE CLEAR; URINE BILIRUBIN 1+ (<2.0 mg/dL); URINE COLOR DK YELLOW; URINE GLUCOSE (UA) NEAGTIVE (NEGATIVE); URINE KETONE 4+ (NEGATIVE); URINE LEUK ESTERASE 1+ (NEGATIVE); URINE NITRITE NEGATIVE (NEGATIVE); URINE PROTEIN NEGATIVE (NEGATIVE)
[2018-07-05 15:18] LABS: EPI CELLS 5.5 /HPF (FEW); HYALINE CASTS 12.4 /hpf (NEGATIVE); URINE BACTERIA 23.7 /hpf (NEGATIVE); URINE RBC 0.9 /hpf (0-3); URINE WBC 2.9 /hpf (3-5)
[2018-07-05] MEDS ORDERED: DEXTROSE 5%-LACTATED RINGERS 1,000 ML IV SCH (15:30)
[2018-07-05] MEDS ORDERED: DEXTROSE 5%-NORMAL SALINE 500 ML IV ONE (16:49)
[2018-07-05] MEDS ORDERED: METOCLOPRAMIDE HCL INJECTION 10 MG/2 ML VIAL IVPUSH ONE (17:41)
[2018-07-05 18:06] VITALS: BP 105/67; PULSE 91
[2018-07-06] MEDS ORDERED: PYRIDOXINE HCL (B-6) 50 MG TABLET (FP) PO ONE (17:42)
== END 2018-07-05 18:20 | disposition home or self-care (01) ==
LOC: JER 09:53
PROC: 3E033GC Introduction of Other Therapeutic Substance into Peripheral Vein, Percutaneous Approach (ICD-10-PCS; principal; 2018-07-05)
PROC: 3E0337Z Introduction of Electrolytic and Water Balance Substance into Peripheral Vein, Percutaneous Approach (ICD-10-PCS; 2018-07-05)
DX: O26.891 Other specified pregnancy related conditions, first trimester (principal); Z3A.11 11 weeks gestation of pregnancy; R11.10 Vomiting, unspecified; R11.2 Nausea with vomiting, unspecified; E86.0 Dehydration
CPT/HCPCS: 36415; 80053; 81003; 81015; 85025; 86850; 86900; 86901; 87086; 96361; 96365; 96367; 96375; 99282-25

== ENCOUNTER 2018-07-27 10:38 | Emergency (ER) | payer OTHER ==
[2018-07-27 11:00] VITALS: BP 102/65; PULSE 74; TEMP 98.9; BMI 30.7
--- NOTE | 2018-07-27 11:49 | PDOC ---
History of Present Illness - General Chief Complaint: Edema Stated Complaint: SEND BY PCP Time Seen by Provider: 07/27/18 11:37 History Source: Patient - History of Present Illness Timing/Duration: other Past History - Past Medical History Allergies/Adverse Reactions: Allergies Allergy/AdvReac Type Severity Reaction Status Date / Time No Known Allergies Allergy Verified 07/05/18 10:02 Home Medications: Ambulatory Orders Prenat 115/Iron Fum/Folic/Dss [ 19 Tablet] 1 each PO DAILY 05/31/18 Doxylamine Succinate/Vit B6 [Zari Antonio 10-10 mg Tablet] 1 each PO TID PRN 30 Days #21 tablet. 07/05/18 Omeprazole 20 mg PO DAILY 07/27/18 Anemia: Yes COPD: No - Reproductive History (#): 6 Para: 4 Spontaneous : 1 - Immunization History Immunization Up to Date: Yes - Suicide/Smoking/Psychosocial Hx Smoking History: Never smoked Have you smoked in the past 12 months: No If you are a former smoker, when did you quit?: years ago Information on smoking cessation initiated: No Hx Alcohol Use: No Drug/Substance Use Hx: No Substance Use Type: None Review of Systems - Review of Systems Constitutional: No: Chills, Fever Respiratory: No: Shortness of Breath Cardiac (ROS): No: Chest Pain, Palpitations ABD/GI: No: Nausea, Vomiting, Abdominal cramping : No: Burning, Dysuria, Discharge, Flank Pain, Hematuria *Physical Exam - Vital Signs Last Vital Signs Temp Pulse Resp BP Pulse Ox 98.9 F 74 18 102/65 99 07/27/18 10:57 07/27/18 10:57 07/27/18 10:57 07/27/18 10:57 07/27/18 10:57 - Physical Exam General Appearance: Yes: Appropriately Dressed. No: Apparent Distress HEENT: positive: Normal Voice Neck: positive: Supple Respiratory/Chest: negative: Respiratory Distress Extremity: positive: Normal Inspection. negative: Tender, Swelling Integumentary: positive: Dry, Warm Neurologic: positive: Fully Oriented, Alert, Normal Mood/Affect Medical Decision Making - Medical Decision Making 07/27/18 11:49 28-year-old female, history of GERD, anemia, currently 14 weeks with confirmed IUP on multiple ultrasounds, s/p multiple ER visits for hyperemesis, currently using rectal phenergan and states n/v has sig improved, here with arm pain. Patient states for the past 4 days has had mild, intermittent cramping to bilateral arms, but reports no swelling. Pain free at this time. Otherwise feels well, with no additional complaints. States she called her OB this am who told her to go to ER to be evaluated. Pt appears well w/ unremarkable exam. No findings to explain symptoms. Possible MSK. Do not see need for further workup in ED as no evidence of serious pathology at this time. Will dc with continued OB follow up. Reasons to return discussed with patient *DC/Admit/Observation/Transfer Diagnosis at time of Disposition: Arm pain Qualifiers: Laterality: bilateral Qualified Code(s): M79.601 - Pain in right arm - Discharge Dispostion Disposition: HOME Condition at time of disposition: Good - Referrals - Patient Instructions Additional Instructions: Your exam was normal There is no evidence of any concerning condition at this time Take tylenol as needed for arm pain Continue to follow uo with your OB - Post Discharge Activity
== END 2018-07-27 12:02 | disposition home or self-care (01) ==
LOC: JER 10:38
DX: M79.601 Pain in right arm (principal); O26.891 Other specified pregnancy related conditions, first trimester
CPT/HCPCS: 99281-25

== ENCOUNTER 2019-01-13 16:20 | Inpatient (IN) | payer OTHER ==
[2019-01-13 18:52] VITALS: BMI 37.0
[2019-01-13 19:26] LABS: BASO % 0.8 % (0-2.0); EOS % 0.3 % (0-4.5); LYMPH % 16.2 % (8-40); MCH 29.1 pg (25.7-33.7); MCHC 33.3 g/dl (32.0-36.0); MEAN CELL VOLUME 87.2 fl (80-96); MEAN PLT VOLUME 10.8 fl (7.5-11.1); MONO % 6.4 % (3.8-10.2); NEUT % 76.3 % (42.8-82.8); PLATELET COUNT 239 K/MM3 (134-434); RBC 3.79 M/mm3 (3.60-5.2); RDW 13.9 % (11.6-15.6); WHITE BLOOD COUNT 13.3 K/mm3 (4.0-10.0)
[2019-01-13 19:32] LABS: INR 0.92 (0.83-1.09); PROTHROMBIN TIME (PATIENT) 10.9 SEC (9.7-13.0)
[2019-01-13 19:35] LABS: ACTIVATED PTT 30.4 SECONDS (25.2-36.5)
[2019-01-13 19:58] LABS: ALBUMIN 2.3 g/dl (3.4-5.0); BILIRUBIN,TOTAL 0.6 mg/dL (0.2-1); BLOOD UREA NITROGEN 17.4 mg/dL (7-18); CALCIUM 8.9 mg/dL (8.5-10.1); CREATININE 0.8 mg/dL (0.55-1.3); TOT PROT 6.4 g/dl (6.4-8.2)
[2019-01-13] MEDS ORDERED: ELECTROLYTE-148 SOLN 1,000 ML IV SCH (20:45)
[2019-01-13] MEDS ORDERED: OXYTOCIN 30 UNITS in 0.9% NS 30 UNIT/500 ML INFUS.BAG IVPB SCH (20:45)
[2019-01-13] MEDS ORDERED: OXYTOCIN 30 UNITS in 0.9% NS 30 UNIT/500 ML INFUS.BAG IVPB ONE (20:45)
--- NOTE | 2019-01-13 21:38 | HP ---
Past Medical History - Primary Care Physician PCP:: Kevyn Germain - Admission Chief Complaint: 29yo P4 with at EGA 38w6d admitted with spontaneous labor. History of Present Illness: Contractions since 4:30pm, no ROM. Pt denies abdominal pain b/w contractions, no RUQ pain, no n/v/fever/chills/diarrhea complicated by: Maternal obesity Elevated LFT-- prior Hep B= neg, Hep C= neg, Abdominal US showed HEPATOMEGALY and SPLENOMEGALY ON 01/10/2019. Grand Multiparity. Vaginal GBS (+) History Source: Patient, Medical Record Limitations to Obtaining History: No Limitations - Past Medical History [employer]: No: Alzheimer's, CVA, Dementia, Migraine, Multiple Sclerosis, Peripheral Neuropathy, Parkinson's, Seizure, Syncope, TIA, Vertigo, Other Cardiovascular: No: AFIB, Aneurysm, Aortic Insufficiency, Aortic Stenosis, CAD, CHF, Deep Vein Thrombosis, HTN, Hyperlipdemia, CT, Mitral Insufficiency, Mitral Stenosis, Murmur, Pulmonary Hypertension, Other Pulmonary: No: Asthma, Bronchitis, Cancer, COPD, O2 Dependent, Pneumonia, Previously Intubated, Pulmonary Embolus, Pulmonary Fibrosis, Sleep Apnea, Other Gastrointestinal: Yes: GERD, Other (Hepatomegally, splenomegally) Hepatobiliary: Yes: Other (Hepatomegally, splenomegally) Renal/: No: Renal Failure, Renal Inusuff, BPH, Cancer, Hematuria, Hemodialysis , Neurogenic Bladder, Renal Calculi, UTI, Other ...: 6 ...Para: 4 ...Term: 4 ...: 0 ...Spon : 1 ...Induced : 0 ...Multiple Gestation: 0 ...LMP: 04/16/18 ... Weeks Gestation by Dates: 38.6 ...EDC by Dates: 01/21/19 ...EDC by Sono: 01/21/19 Heme/Onc: Yes: Anemia (Iron defficience) Infectious Disease: Yes: Other (h/o EBV) Psych: No: Addictions, Anxiety, Bipolar, Depression, Panic, Psychosis, Schizophrenia, Other Musculoskeletal: No: Bursitis, Chronic low back pain, Hemiparesis, Hemiplegia, Osteoarthritis, Paraplegia, Other Rheumatology: No: Fibromyalgia, Gout, Lupus, Rheumatoid Arthritis, Sarcoidosis, Vasculitis, Other ENT: No: Allergic Rhinitis, Sinusitis, Other Endocrine: No: Liguori's Disease, Robert's Disease, Diabetes Insipidus, Diabetes Mellitus, Hyperparathyroidism, Hyperthyroidism, Hypothyroidism, Osteopenia, SIADH, Other Dermatology: No: Basal Cell, Cellulitis, Eczema, Melanoma, Psoriasis, Squamous Cell, Other - Past Surgical History Past Surgical History: Yes: None Hx Myomectomy: No Hx Transabdominal Cerclage: No - Smoking History Smoking history: Never smoked Have you smoked in the past 12 months: No If you are a former smoker, when did you quit?: years ago - Alcohol/Substance Use Hx Alcohol Use: No History of Substance Use: reports: None - Social History Usual Living Arrangement: Yes: With Parent, With Child ADL: Independent Occupation: Homemaker History of Recent Travel: No Home Medications - Allergies Allergies/Adverse Reactions: Allergies Allergy/AdvReac Type Severity Reaction Status Date / Time No Known Allergies Allergy Verified 01/13/19 18:01 - Home Medications Home Medications: Ambulatory Orders Prenat 115/Iron Fum/Folic/Dss [ 19 Tablet] 1 each PO DAILY 05/31/18 Family Medical History Family History: Unremarkable Review of Systems - Review of Systems Constitutional: reports: Other (labor) Eyes: reports: No Symptoms HENT: reports: No Symptoms Neck: reports: No Symptoms Cardiovascular: reports: No Symptoms Respiratory: reports: No Symptoms Gastrointestinal: reports: No Symptoms Genitourinary: reports: No Symptoms Breasts: reports: No Symptoms Reported Musculoskeletal: reports: No Symptoms Integumentary: reports: No Symptoms Neurological: reports: No Symptoms Endocrine: reports: No Symptoms Hematology/Lymphatic: reports: No Symptoms Psychiatric: reports: No Symptoms Pain Intensity: 5 Physical Exam - Maternity Vital Signs: Vital Signs Temperature 98.0 F 01/13/19 19:00 Pulse Rate 80 01/13/19 20:00 Respiratory Rate 16 01/13/19 20:00 Blood Pressure 123/77 01/13/19 20:00 O2 Sat by Pulse Oximetry (%) Constitutional: Yes: Well Nourished, No Distress, Calm Eyes: Yes: WNL, Conjunctiva Clear HENT: Yes: WNL, Atraumatic, Normocephalic Neck: Yes: WNL, Supple, Trachea Midline Cardiovascular: Yes: WNL, Regular Rate and Rhythm Lungs: Clear to auscultation - Abdominal Exam/OB Fundal Height: 39 Number of Fetuses: Single Presentation: Vertex Contractions: Yes Regularity: Regular Intensity: Moderate Monitor Mode: External Heart Rate (range): 130 Heart Rate Location: Midline Category: I Accelerations: Non-Uniform Decelerations: None - Vaginal Exam/OB Vaginal Bleediing: No Speculum Exam: No Dilatation (cm): 4 Effacement (%): 70 Amniotic Membrane Status: Intact Presentation: Vertex/Position Station: -4 (Gynecoid pelvimetry) - Physical Exam Musculoskeletal: Yes: WNL Extremities: Yes: WNL Edema: No Integumentary: Yes: WNL Deep Tendon Reflex Grade: Normal +2 Psychiatric: Yes: WNL, Alert, Oriented - Labs Lab Results: CBC, BMP 01/13/19 19:15 01/13/19 19:15 Hemorrhage Risk Assessment - Risk Factors Medium Risk Factors: Yes: None High Risk Factors: Yes: None Risk Score: 1 Risk Level: Medium Risk Imaging - Results Ultrasound: Report Reviewed Assessment/Plan 29yo P4 with at EGA 38w6d admitted with spontaneous labor. Fetus with Category I tracing. Labor in latent phase. Pt was monitored on L&D and there was no change in cervical exam. The decision was made to augment the labor with pitocin. Anticipate . Hepatomegally, splenomegally, and elevation in LFT was noted. There is no evidence of preeclampsia. Plan to eval labs. Plan of care, risks, benefits, alternatives were d/w pt.
[2019-01-13] MEDS ORDERED: FENTANYL/BUPIVACAINE/NS/PF - PCEA - 50 ML DISP.SYRIN EP ONE (21:53)
[2019-01-13] MEDS ORDERED: NALOXONE HCL 0.4 MG/ML VIAL IVPUSH PRN (21:56)
[2019-01-13] MEDS ORDERED: BUPIVACAINE HCL/PF 2.5 MG/ML - 30 ML VIAL IJ ONE (21:58)
[2019-01-13] MEDS ORDERED: LIDO 2%/EPI 1:200000 PRESRVFRE (20 ML SDVIAL) ONE (21:58)
[2019-01-13] MEDS ORDERED: FENTANYL/BUPIVACAINE/NS/PF - PCEA - 50 ML DISP.SYRIN EP SCH (22:00)
[2019-01-13 22:24] LABS: EPI CELLS 11.6 /HPF (0-5/HPF); HYALINE CASTS 23 /lpf (0-8); PH,URINE 5.5 (5.0-8.0); URINE APPEARANCE CLEAR; URINE BILIRUBIN NEGATIVE (NEGATIVE); URINE COLOR YELLOW; URINE GLUCOSE (UA) NEGATIVE (NEGATIVE); URINE KETONE NEGATIVE (NEGATIVE); URINE LEUK ESTERASE 2+ (NEGATIVE); URINE NITRITE NEGATIVE (NEGATIVE); URINE PROTEIN NEGATIVE (NEGATIVE); URINE RBC 1 /hpf (0-4); URINE UROBILINOGEN 0.2 mg/dL (0.2-1.0); URINE WBC 4 /hpf (0-5)
[2019-01-13 22:37] LABS: URINE BACTERIA POSITIVE /hpf (NEGATIVE)
--- NOTE | 2019-01-14 00:51 | PN ---
Ante-Partal Exam - Subjective Subjective: I was called by RN due to suspected prolonged decel x 7-8 minutes vs maternal heart rate. Pitocin was discontinued, pt was given O2 by mask, she was in left lateral position. Vital Signs: Vital Signs Temperature 97.9 F 01/13/19 22:00 Pulse Rate 87 01/14/19 00:00 Respiratory Rate 18 01/14/19 00:00 Blood Pressure 121/74 01/14/19 00:00 O2 Sat by Pulse Oximetry (%) 100 01/14/19 00:00 Bleeding: No Headache: No Visual changes: No Right upper quadrant pain: No Pain (scale 1-10): 0 - Contractions Contractions: Yes Regularity: Irregular Intensity: Mild/Mod Monitor Mode: External - Exam during Labor Heart Rate: 130 Variability: Moderate Heart Rate Location: Midline Monitor Accelerations: Absent Monitor Decelerations: Prolonged (possible prolonged decel x 8 min) Exam: Vaginal Dilatation (cm): 4 Effacement (%): 80 Amniotic Membrane Status: Ruptured Amniotic Fluid: Clear Presentation: Vertex Station: -3 Remarks: FSE placed - Intrapartum Hemorrhage Risk Medium Risk Factors: None High Risk Factors: None Risk Score: 0 Risk Level: Low Risk - Assessment/Plan Assessment/Plan: 29yo P4 with early labor and contractions augmented with pitocin. Since a possible prolonged decel was noted (vs. maternal heart rate- pt is obese and loss of contact cannot be ruled out), pitocin was stopped, FSE applied, O2 given and pt's position was changed. The FHR was normal on FSE. Plan to monitor for now.
[2019-01-14] MEDS ORDERED: FENTANYL/BUPIVACAINE/NS/PF - PCEA - 50 ML DISP.SYRIN EP ONE (03:15)
[2019-01-14] MEDS ORDERED: OXYTOCIN 20 UNITS in 0.9% NS 20 UNIT/1,000 ML INFUS.BAG IV ONE (04:01)
[2019-01-14] MEDS ORDERED: METHYLERGONOVINE MALEATE 0.2 MG/1 ML AMP IM PRN (04:23)
[2019-01-14] MEDS ORDERED: ACETAMINOPHEN 325 MG TABLET (FP) PO PRN (04:23)
[2019-01-14] MEDS ORDERED: BENZOCAINE 20% 57 GM BOTTLE TP PRN (04:23)
[2019-01-14] MEDS ORDERED: WITCH HAZEL 50% (TUCKS) 40 PAD/JAR PAD TP PRN (04:23)
[2019-01-14] MEDS ORDERED: BISACODYL 10 MG SUPP.RECT RC PRN (04:23)
[2019-01-14] MEDS ORDERED: BENZOCAINE 28 GM HEMORRHOIDAL OINTMENT TP PRN (04:23)
--- NOTE | 2019-01-14 04:29 | PROC ---
Obstetrical Vaccum Device - Doc. Following Use of Vaccum Device Indications for use: Bradycardia Risks and Benefits Explained: Yes Consent on Chart: Yes Dilation (0-10): 10 Station: 3 Molding: No Position: OA Caput: No Proper placement of cup confirmed: Yes Number of pulls: 1 Number of pop-offs: 0 Duration of time cup on head (min): 0 (15 sec) Total time cup near/at maximum pressure (min): 0 (15 sec) Outcome: Successful delivery with a single pull Appearance of head on delivery: Normal Tile Erector present during vacuum extraction: No Tile Erector & nursery staff notified of vacuum extraction: Yes
[2019-01-14] MEDS ORDERED: OXYTOCIN 20 UNITS in 0.9% NS 20 UNIT/1,000 ML INFUS.BAG IV SCH (04:30)
[2019-01-14] MEDS: IBUPROFEN 600 MG TABLET (FP) PO PRN (07:06)
--- NOTE | 2019-01-14 10:21 | PN ---
Delivery - Delivery Vaginal Delivery: Spontaneous, Vacuum Assist Type of Anesthesia: Epidural Episiotomy/Laceration: None EBL (cc): 500 Delivery, Single - Stages of Labor Date 1st Stage Initiatied: 01/13/19 Time 1st Stage Initiated: 16:30 Date 2nd Stage Initiated: 01/14/19 Time 2nd Stage Initiated: 04:00 Date of Delivery: 01/14/19 Time of Delivery: 04:03 Date Placenta Delivered: 01/14/19 Time Placenta Delivered: 04:12 Placenta: Yes: Spontaneous, Normal Configuration - Condition of Transportation Lead/Events Administrative Assistant Present: No Gender: Male Weight: 3.062 kg Position: Right, OP Total Hours ROM (Hrs/Mins): 3/22 - 1 Minute Total Score: 8 5 Minutes Total Score: 9 - Feeding Plan Initial Plan: Exclusive throughout hospitalization Benefits of Exclusively reinforced: Yes
[2019-01-14] MEDS: PRENATAL VITAMINS W/ FOLIC ACID TABLET (FP) PO SCH (11:12)
[2019-01-15 07:49] LABS: BASO % 0.6 % (0-2.0); EOS % 2.1 % (0-4.5); HEMATOCRIT 28.4 % (32.4-45.2); HEMOGLOBIN 9.6 GM/dL (10.7-15.3); LYMPH % 24.1 % (8-40); MCH 29.6 pg (25.7-33.7); MCHC 33.7 g/dl (32.0-36.0); MEAN CELL VOLUME 87.8 fl (80-96); MEAN PLT VOLUME 10.4 fl (7.5-11.1); MONO % 6.4 % (3.8-10.2); NEUT % 66.8 % (42.8-82.8); PLATELET COUNT 206 K/MM3 (134-434); RBC 3.23 M/mm3 (3.60-5.2); RDW 13.7 % (11.6-15.6); WHITE BLOOD COUNT 11.6 K/mm3 (4.0-10.0)
[2019-01-15] MEDS: PRENATAL VITAMINS W/ FOLIC ACID TABLET (FP) PO SCH (09:23)
--- NOTE | 2019-01-15 18:36 | PN ---
Post Progress Note - Subjective Subjective: Patient without acute complaints. Reports tolerating oral intake without nausea or vomiting. Ambulating without dizziness. Denies fevers or chills. Pain well controlled with oral pain medication. Pumping/breast feeding without issue Post Day: 1 Type of Delivery: Vacuum Assist Vag Del Vital Signs: Vital Signs Temperature 98.3 F 01/15/19 10:00 Pulse Rate 70 01/15/19 10:00 Respiratory Rate 20 01/15/19 10:00 Blood Pressure 113/66 01/15/19 10:00 O2 Sat by Pulse Oximetry (%) 98 01/14/19 05:30 Breast Exam: Yes: Soft Uterus: Yes: Fundus Firm, Fundus below umbilicus, Non-tender Abdomen/GI: Yes: Abdomen soft, Passing flatus, Tolerating PO Lochia: Yes: Rubra Lochia, amount: Small Extremities: Yes: Calves non-tender Perineum: Yes: Intact Activity: Ambulating - Labs Labs: CBC WBC 11.6 K/mm3 (4.0-10.0) H 01/15/19 07:10 RBC 3.23 M/mm3 (3.60-5.2) L 01/15/19 07:10 Hgb 9.6 GM/dL (10.7-15.3) L 01/15/19 07:10 Hct 28.4 % (32.4-45.2) L 01/15/19 07:10 MCV 87.8 fl (80-96) 01/15/19 07:10 MCH 29.6 pg (25.7-33.7) 01/15/19 07:10 MCHC 33.7 g/dl (32.0-36.0) 01/15/19 07:10 RDW 13.7 % (11.6-15.6) 01/15/19 07:10 Plt Count 206 K/MM3 (134-434) 01/15/19 07:10 MPV 10.4 fl (7.5-11.1) 01/15/19 07:10 Absolute Neuts (auto) 7.8 K/mm3 (1.5-8.0) 01/15/19 07:10 Neutrophils % 66.8 % (42.8-82.8) 01/15/19 07:10 Lymphocytes % 24.1 % (8-40) D 01/15/19 07:10 Monocytes % 6.4 % (3.8-10.2) 01/15/19 07:10 Eosinophils % 2.1 % (0-4.5) D 01/15/19 07:10 Basophils % 0.6 % (0-2.0) 01/15/19 07:10 Nucleated RBC % 0 % (0-0) 01/15/19 07:10 Assessment/Plan 29yo P5 s/p VAVD, doing well stable, afebrile. Asymptomatic for anemia. care instructions reviewed. Continue routine care. Ambulation encouraged Discharge instruction reviewed. Pt's LFT are still elevated. Results were discussed with pt. No s/sx's of pre- eclampsia/HELLP, infectious hepatitis screen is negative. Pt was advised to f/u in-office next week and will be referred to electrician front.
--- NOTE | 2019-01-15 20:01 | DS ---
Physical Exam-HEAD INSPECTOR AND CENTER MARKER Vital Signs: Vital Signs Temperature 98.3 F 01/15/19 10:00 Pulse Rate 70 01/15/19 10:00 Respiratory Rate 20 01/15/19 10:00 Blood Pressure 113/66 01/15/19 10:00 O2 Sat by Pulse Oximetry (%) 98 01/14/19 05:30 Constitutional: Yes: No Distress, Calm, Obese Eyes: Yes: WNL, Conjunctiva Clear HENT: Yes: WNL, Atraumatic, Normocephalic Neck: Yes: WNL, Supple, Trachea Midline Cardiovascular: Yes: WNL, Regular Rate and Rhythm Respiratory: Yes: WNL, Regular, CTA Bilaterally Gastrointestinal: Yes: Normal Bowel Sounds, Soft, Abdomen, Obese ...Rectal Exam: Yes: Deferred Renal/: Yes: WNL ....Post : Yes: Uterus firm, Uterus non-tender, Slight lochia rubra Breast(s): Yes: WNL Musculoskeletal: Yes: WNL Extremities: Yes: WNL Edema: Yes Edema: LLE: Trace, RLE: Trace Integumentary: Yes: WNL Neurological: Yes: WNL, Alert, Oriented ...Motor Strength: WNL Psychiatric: Yes: WNL, Alert, Oriented Labs: CBC, BMP 01/15/19 07:10 01/13/19 19:15 Delivery - Delivery Vaginal Delivery: Spontaneous, Vacuum Assist Type of Anesthesia: Epidural Episiotomy/Laceration: None EBL (cc): 500 Delivery, Single - Stages of Labor Date 1st Stage Initiatied: 01/13/19 Time 1st Stage Initiated: 16:30 Date 2nd Stage Initiated: 01/14/19 Time 2nd Stage Initiated: 04:00 Date of Delivery: 01/14/19 Time of Delivery: 04:03 Time Placenta Delivered: 04:12 Placenta: Yes: Spontaneous, Normal Configuration - Condition of Marine Architect/Conveyor Belt Operator Present: No Gender: Male Weight: 3.062 kg Position: Right, OP Total Hours ROM (Hrs/Mins): 3/22 - 1 Minute Total Score: 8 5 Minutes Total Score: 9 - [place] Feeding Plan Initial Plan: Exclusive throughout hospitalization Benefits of Exclusively reinforced: Yes Discharge Summary Problems reviewed: Yes Reason For Visit: LABOR ADMIT Labor at term Obesity complicating , Hepatomegaly, Splenomegaly, Elevated liver enzymes Procedures: Principal: VERNELL Hospital Course: Normal recovery Plan of Treatment: Follow in office and for referral to GI/saw grinder Condition: Good - Instructions Diet, Activity, Other Instructions: Physical activity Resume your normal everyday activity as tolerated no heavy lifting or exercise until seen by your surgeon. You may walk unlimited vito of and climb stairs. You may resume driving the car when you feel safe and comfortable behind the wheel. No sexual activity as instructed. Wound care If you have a bandage, leave it on, and keep dry for 48-72 hours. After that time discard the outer bandage. If they are tapes on the skin under the out of bandage leave them in place. They will peel off in the next 7 to 10 days. Do Not Peel them off. You may shower the day after surgery. If there are tapes present on the skin, you may shower over them. Diet There are no dietary restrictions. Eat healthy, high-fiber foods. Drink 6 to 8 glasses of liquid each day. This will assist in keeping your bowels are regular. Pain management You may take Tylenol or acetaminophen or Ibuprofen (for example, Motrin, Advil etc.) from my pain prescription medication is ordered should be taken as prescribed for moderate to severe pain. Call MD for any of the following: Severe pain not relieved by medication Fever of 101 or higher Excessive bleeding or drainage on dressing Inability to urinate Referrals: Lori Nelson MD [Staff Physician] - Disposition: HOME - Home Medications Comprehensive Discharge Medication List: Ambulatory Orders Prenat 115/Iron Fum/Folic/Dss [ 19 Tablet] 1 each PO DAILY 05/31/18 Prescription Drug Monitoring Program (I-STOP) results: I-STOP not reviewed
[2019-01-15] MEDS: IBUPROFEN 600 MG TABLET (FP) PO PRN (20:02)
[2019-01-15] MEDS ORDERED: SENNOSIDES/DOCUSATE COMBO (SENNA PLUS) TABLET (UD) PO PRN (22:00)
--- NOTE | 2019-01-16 07:00 | PN ---
Post Progress Note - Subjective Subjective: Patient without acute complaints. Reports tolerating oral intake without nausea or vomiting. Ambulating without dizziness. Denies fevers or chills. Pain well controlled with oral pain medication. without difficulty. Passing flatus. Post Day: 2 Type of Delivery: Vacuum Assist Vag Del Vital Signs: Vital Signs Temperature 97.6 F 01/15/19 21:54 Pulse Rate 74 01/15/19 21:54 Respiratory Rate 18 01/15/19 21:54 Blood Pressure 121/72 01/15/19 21:54 O2 Sat by Pulse Oximetry (%) 98 01/14/19 05:30 Breast Exam: Yes: Soft Uterus: Yes: Fundus Firm, Fundus below umbilicus Abdomen/GI: Yes: Abdomen soft, Passing flatus, Tolerating PO. No: Abdominal Distention, Tender Lochia: Yes: Serosa Lochia, amount: Small Extremities: Yes: Calves non-tender, Edema (trace) Activity: Ambulating - Labs Labs: CBC WBC 11.6 K/mm3 (4.0-10.0) H 01/15/19 07:10 RBC 3.23 M/mm3 (3.60-5.2) L 01/15/19 07:10 Hgb 9.6 GM/dL (10.7-15.3) L 01/15/19 07:10 Hct 28.4 % (32.4-45.2) L 01/15/19 07:10 MCV 87.8 fl (80-96) 01/15/19 07:10 MCH 29.6 pg (25.7-33.7) 01/15/19 07:10 MCHC 33.7 g/dl (32.0-36.0) 01/15/19 07:10 RDW 13.7 % (11.6-15.6) 01/15/19 07:10 Plt Count 206 K/MM3 (134-434) 01/15/19 07:10 MPV 10.4 fl (7.5-11.1) 01/15/19 07:10 Absolute Neuts (auto) 7.8 K/mm3 (1.5-8.0) 01/15/19 07:10 Neutrophils % 66.8 % (42.8-82.8) 01/15/19 07:10 Lymphocytes % 24.1 % (8-40) D 01/15/19 07:10 Monocytes % 6.4 % (3.8-10.2) 01/15/19 07:10 Eosinophils % 2.1 % (0-4.5) D 01/15/19 07:10 Basophils % 0.6 % (0-2.0) 01/15/19 07:10 Nucleated RBC % 0 % (0-0) 01/15/19 07:10 Assessment/Plan 29 yo PPD # 2 s/p VAVD, afebrile, vital signs stable, doing well 1. Patient stable for discharge home today. 2. Patient encouraged to contact MD for: - Severe pain not controlled by oral pain medication - Fevers or chills - Nausea or vomiting, intolerance of oral intake 3. Patient to follow up in office in 4-6 weeks for visit
[2019-01-16] MEDS: PRENATAL VITAMINS W/ FOLIC ACID TABLET (FP) PO SCH (09:47)
[2019-01-16 10:35] VITALS: BP 123/76; PULSE 71; TEMP 98.1
== END 2019-01-16 13:50 | disposition home or self-care (01) | DRG 560 ==
LOC: JDEL 16:20 → JLDR 18:35 → J3W 01-14 06:10
PROVIDERS: ADMIT Obstetrics & Gynecology; ATTEND Obstetrics & Gynecology
PROC: 10E0XZZ Delivery of Products of Conception, External Approach (ICD-10-PCS; principal; 2019-01-13)
DX: O36.8330 Maternal care for abnormalities of the fetal heart rate or rhythm, third trimester, not applicable or unspecified (principal); O66.5 Attempted application of vacuum extractor and forceps; Z3A.38 38 weeks gestation of pregnancy; Z37.0 Single live birth; O99.213 Obesity complicating pregnancy, third trimester; R16.0 Hepatomegaly, not elsewhere classified; R16.1 Splenomegaly, not elsewhere classified
CPT/HCPCS: 36415; 36600; 59409; 80048; 80053; 80074; 81003; 82803; 84550; 85025; 85610; 85730; 86593; 86850; 86870; 86900; 86901; 86902; 87522